=== PATIENT | female | born 1970 | race Caucasian/White ===

== ENCOUNTER → 2018-04-29 11:34 | Outpatient (CLI) | payer BC, SELFPAY ==
--- NOTE | 2018-04-29 11:45 | DI.REPORT_ITS ---
SYMPTOM/DIAGNOSISs: RT ANKLE PAIN M25.571, RT ANKLE INJURY S99.911A, RT HEEL PAIN M79.671 RIGHT ANKLE: Comparison is made with foot dated 14 December 2017 Small heel spurs are again noted. No bony erosions or foreign bodies are seen. An ossicle is again noted at the dorsal aspect of the talus. The ankle mortise and talar dome appear intact. IMPRESSION: Small heel spurs.
== END ==
PROVIDERS: PCP Nurse Practitioner; Visit Provider Nurse Practitioner
DX: M25.571 Pain in right ankle and joints of right foot (principal); M79.671 Pain in right foot; S99.911A Unspecified injury of right ankle, initial encounter; M77.31 Calcaneal spur, right foot
CPT/HCPCS: 73610

== ENCOUNTER 2018-05-12 14:31 | Outpatient (RCR) | payer BC, SELFPAY ==
--- NOTE | 2018-01-24 09:33 | PTIDS_ITS ---
DATE: 01/24/18 REFERRING PROVIDER: Eveline Hill NP DIAGNOSIS: back pain ___x__ Patient did not return for a follow up appointment(s). Patient called to cancel remaining appointment(s). Reason: Return to physician recommended. Patient had achieved an improvement in condition up to their prior level of function. Patient was instructed in a customized home exercise program to continue independently at home. The patient was given the option to call and schedule an appointment any time within a 3-week period if they experience a return of symptoms. Patient did not schedule follow up within this time frame. COMMENTS: Seen for initial evaluation only on 11/22/17. ___x__ Discharge from PT at this time. Medicare: Unable to assign G-Codes due to the lack of a formal follow up visit. Patient did not schedule further visits after their last attended appointment and therefore a final assessment could not be performed.
--- NOTE | 2018-05-12 10:04 | IE_ITS ---
Date: 05/12/18 Referring: Eveline Hill NP M.D. Diagnosis: (R) heel and ankle pain, back spasm. P.T. Diagnosis: Acute on chronic back pain. SUBJECTIVE: History of Present Illness: [place] states that her back and shoulders have been bothering her for about 2 weeks with sharp increased pain beginning yesterday. She has a long hx of mid back pain for which she has sought out extensive PT intervention. She has an extensive HEP and completes a daily walking program for management of her pain. She works in [employer] services at the [employer] and returned to work this week and this required a great deal of lifting and standing. As she set up for the past few days and theses changes have resulted in increased back pain. She does perform some tubing exercise at baseline although states that her return to work she has not been as regular with these. She also states that she has had on going (R) heel pain and she had received a referral to see us for that however in the meantime was seen at the [facility] and dx with Achilles tendinitis. She has been instructed in appropriate footwear and was advised to get a heel lift although she has been unable to find one. She describes pain in the mid shoulders and back when taking deep breathes, standing or sitting for too long and she also reports that her pain in fairly constant and it is difficult to identify any exacerbating or alleviating activity. Pain Ratin/10 Pain Location: Between the shoulder blades extending over the superior shoulders and into the neck. 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 She walks 3 miles per day typically in place of her regular strengthening program with thera tubing for upper and LE. Current Level of Function: Currently walking only 1 mile per day due to restriction from her orthopedist in regards to her foot pain. She has discontinued her tubing exercises over the past couple weeks due to time constraints with return to work. Previous Treatment: Extensive PT intervention including soft tissue work and joint mobilizations to the mid back. She has responded favorably to kinesio taping in the past. Comorbidities: Fibromyalgia, anxiety Medications: Omeprazole. Quality of Life: __X__ Fair Standardized Measures: MOLBPDQ: __23% deficit__ OBJECTIVE: Posture: Pt has rounded shoulder forward head posturing. She has a positive Dowengers hump. With cues, she is able to self correct posture minimally. In seated position demonstrates exaggerated scapular protraction. Gait: Non antalgic and non ataxic. Palpation: Pt has significant soft tissue tightness through the upper traps (B) . She is tender through the thoracic paraspinals (B). Joint mobility shows hypomobility through the upper thoracic spine segments. ROM: Cervical ROM is normal she does have contralateral pain with side bending and rotation. UE motion is full and pain free, trunk motion is full pain free. Strength: UE strength is grossly WNL. Treatment: Todays session consisted of neuromodulation with down regulation techniques with IASTM to the cervical and thoracic paraspinals and (B) upper traps. Pt received grade 4 thoracic spine mobilizations with multiple cavitations achieved through the mid thoracic spine. She received kinesio taping for proprioceptive feedback through the paraspinals followed by 10 reps of scap retraction exercises. We review pt's HEP of shoulder extension with thera band resistance which will resume regularly. She is also provided with a heel lift for alleviation of stress through the Achilles. IE: [id number] Direct treatment time: 60 minutes Total treatment time: 60 minutes ASSESSMENT: Patient is a 47-year-old female, referred for PT services with the diagnosis of (R) ankle pain and back spasm. Patient presents with clinical signs and symptoms consistent with acute on chronic mid back pain with underlying postural deficits. Symptoms are complicated by her underlying fibromyalgia and persistent Achilles tendonitis as demonstrated by the following impairment level findings: 1. Postural deficits, 2. Soft tissue dysfunction, 3. chronic pain with fibromyalgia. Impairments are contributing to the following functional limitations: 1. Decreased tolerance to work duties, 2. Pain with prolonged standing, 3. Pain with prolonged sitting. 4.Difficulty completing her normal exercise routine. Patient is assessed as: ____ Low 32690 __X__ Moderate 82330 ____ High 96007 complexity, based on the following: History: Acute on chronic mid back pain and pt with long hx of postural deficits and associated mid back pain. She is also recently returned to her work which requires sustained positioning. Examination: Functional limitations as above. Presentation: X Evolving due to recent return to work Decision-Making: X Moderate complexity __X__ Patient requires skilled PT intervention to remediate the above functional limitations to return to: __X__ Premorbid level of function __X__ Return to full functional mobility __X__ Return to work demands __X__ Improve QOL Prognosis: __X__ Good STG: __4__ weeks. 1. Reduced frequency and severity of pain by 50%. 2. pt able to tolerate prolonged standing for work duties. LTG: __8__ weeks. 1. Fully (I) self management of symptoms. 2. Pt able to resume her normal exercise program. PLAN: Patient to be seen 1 x per week, for 8 weeks, adjusting frequency of visits per patient symptoms and response to treatment. Treatment to include: X Manual therapy - [id number]: Manual mobilization including deep tissue mobilization and joint mobs through the cervical and thoracic spine. Including use of IASTM and taping techniques. Will instruct pt in postural strengthening program which will progress as she is able to tolerate. We will also address her foot and ankle pain as symptoms persist despite orthopedic intervention. Thank you for this referral. Please do not hesitate to contact me with any questions or concerns regarding this patient's plan of care.
== END 2018-05-13 23:59 | disposition home or self-care (01) ==
LOC: PT 14:31
PROVIDERS: PCP Nurse Practitioner; Referring Provider Nurse Practitioner; Visit Provider Nurse Practitioner
DX: M54.6 Pain in thoracic spine (principal); G89.29 Other chronic pain; R29.3 Abnormal posture; M76.61 Achilles tendinitis, right leg; M79.7 Fibromyalgia
CPT/HCPCS: 97162

== ENCOUNTER 2018-08-05 11:14 | Outpatient (CLI) | payer BC, SELFPAY ==
[2018-08-05 13:08] LABS: HCT 42.9 % (36.0-46.0); HGB 13.9 g/dL (12.0-15.5); Mean Corp. HGB Concentration 32.4 g/dL (32.0-36.0); Mean Corpuscular Hemoglobin 30.8 pg (27.0-33.0); Mean Corpuscular Volume 95.1 fL (80-95); Mean Platelet Volume 11.1 fL (8.0-11.0); Platelet Count 261 x1000/uL (130-400); RBC 4.51 m/cumm (4.00-5.20)
[2018-08-05 13:58] LABS: Anion Gap 10.4 mmol/L (3-11); BUN 19 mg/dL (7-18); CO2 28.6 mmol/L (21.0-32.0); Calcium 9.7 mg/dL (8.5-10.1); Chloride 103 mmol/L (98-107); Glucose 97 mg/dL (70-100); Magnesium 1.7 mg/dL (1.8-2.4); Potassium 3.9 mmol/L (3.5-5.1); Sodium 142 mmol/L (136-145)
== END 2018-08-05 11:34 ==
PROVIDERS: PCP Nurse Practitioner; Visit Provider Student in an Organized Health Care Education/Training Program
DX: K59.00 Constipation, unspecified (principal); R53.83 Other fatigue; D68.51 Activated protein C resistance; R23.3 Spontaneous ecchymoses; E63.9 Nutritional deficiency, unspecified; E86.0 Dehydration; Z86.39 Personal history of other endocrine, nutritional and metabolic disease
CPT/HCPCS: 36415; 80048; 85027; 83735

== ENCOUNTER 2018-08-15 11:43 | Emergency (ER) | payer BC, SELFPAY ==
[2018-08-15] VITALS (13 sets, daily range): BP systolic 117–130; BP diastolic 70–77; PULSE 78–95; RESP 14–20; TEMP 37.2; O2SAT 99–100
--- NOTE | 2018-08-15 11:53 | ED.GENADUL_ITS ---
Discharge Plan Disposition Patient Disposition: HOME Condition: Stable Discharge Details Chief Complaint: Chest Pain Clinical Impression: Chest pain Primary Care Provider: Eveline Hill ED Provider: Jerod Crawford Home Meds and New Rx's Prescriptions: No Action meloxicam 15 mg tablet 15 mg PO DAILY Qty: 30 RF: 3 compression socks, medium [Futuro Restoring Medium] 1 EACH misc 1 ea Miscellaneous DAILY Qty: 2 RF: 0 valacyclovir 1 gram tablet 2,000 mg PO Q12H PRNRF: 0 Discharge Instructions Instructions: Chest Pain (ED) Additional Instructions: Follow up with your primary care provider within a week take 81 mg aspirin daily until you follow up with your primary care provider's office Discuss having stress testing with your primary care provider if you have severe worsening of pain or difficulty breathing return to the emergency department Medical Decision Making 47 yo female with hx of fibromyaglia, ibs, who comes in with complaint of chest pain starting around 4am and radating to the back. Denies fevers, cough or recent travel. States it is worse with deep breaths. Has no leg swelling or calf pain. HAs pain when I push on the chest and upper back so could be musculoskeletal, but will obtain CTA to eval for dissection vs PE (unlikely pe given lack of tachycardia/hypoxia/evidence of dvt on exam). Heart score is 1 based on age, will obtain troponin and monitor pt remains stable, only has pain with palpation now. CTA negative per Dr. Hauser and labs unremarkable. Given length of time with symptoms do not feel second troponin inidicated and given low heart score feel she is safe for outpatient managemenet. Advised f/u with pcp this week and return precautions given Differential Diagnosis nstemi, musculoskeletal pain, dissection, fibromyalgia Imaging Data Radiologic Study: Attestation: I personally reviewed and interpreted this imaging study as follows: Imaging: CT Scan Radiologist's impression: no acute findings Lab Data Lab results reviewed: Yes I reviewed the patient's lab results. ECG Data Attestation: I personally reviewed and interpreted this ECG (s) as follows: Prior ECG tracings: available for review Interpretation: sinus rhythm, rate of 90, pr 116, no acute st t wave changes when compared to old ekg HPI General Mode of arrival: ambulatory . Date/Time Provider Initiated Documentation: 08/15/18 11:45 . Limitations to Documentation: no limitations . Information obtained by: patient . History of Present Illness 47 year old F presents to the emergency department with the chief complaint of chest pain, described as moderate, with intensity rated at 5. Quality is described as aching, and is localized to the chest. Patient reports radiation to back. Patient started experiencing this hour(s) (8) and it has been constant. No relieving factors improve symptom(s), Patient did receive the following treatments prior to arrival, none Related Data Home Medications Medication Instructions Recorded Confirmed compression socks, medium [Futuro #2 u 03/11/16 08/11/18 Restoring] meloxicam 15 mg tablet 15 mg PO DAILY #30 tab 08/11/18 08/15/18 valacyclovir 2,000 mg PO Q12H PRN 08/15/18 08/15/18 Previous Rx's Medication Instructions Recorded meloxicam 15 mg tablet 15 mg PO DAILY #30 tab 08/11/18 Allergies Allergy/AdvReac Type Severity Reaction Status Date / Time Penicillins Allergy Intermediate FACIAL Verified 08/15/18 11:56 SWELLING Sulfa (Sulfonamide Allergy Verified 08/15/18 11:56 Antibiotics) venlafaxine HCl AdvReac Unknown felt Verified 08/15/18 11:56 [From Effexor] weird, eyes becam dilated per pt Review of Systems Review of Systems All systems reviewed & are unremarkable except as noted in HPI and below Constitutional Denies chills, Denies fever(s) and Denies weakness ENT Denies change in voice Gastrointestinal Denies abdominal pain, Denies nausea and Denies vomiting Integumentary/Breasts Denies rash Neurologic Denies weakness PFSH Abdominal pain Fibromyalgia Hx of supraventricular tachycardia Family History Mother No problems noted. Father Essential hypertension Diabetes Brother No problems noted. Abdominal hysterectomy (~2008) Colonoscopy - MAC EGD - MAC Ligation of fallopian tube (~2008) Open Carpal Tunnel release (~2009) TENNIS ELBOW (~2010) Tonsillectomy (~2012) r shoulder surgery (02/17/16) Family History Mother No problems noted. Father Essential hypertension Diabetes Brother No problems noted. Medical History Abdominal pain Fibromyalgia Hx of supraventricular tachycardia Social History Smoking/Tobacco Use Status: Never Surgical History Abdominal hysterectomy (~2008) Colonoscopy - MAC EGD - MAC Ligation of fallopian tube (~2008) Open Carpal Tunnel release (~2009) TENNIS ELBOW (~2010) Tonsillectomy (~2012) r shoulder surgery (02/17/16) Social History Smoking/Tobacco Use Status: Never Exam Const General: no acute distress Orientation: alert HENMT Head: normal to inspection Ears: external ears normal General nose exam: external nose normal Mouth: moist mucous membranes Eyes General: appearance normal, both eyes and all related structures Neck Neck: normal visual inspection Resp Effort & Inspection: normal respiratory effort and able to speak in complete sentences Cardio Rate: regular rate Skin General skin exam: no rashes or lesions noted Neuro General: alert and oriented x3 Extrem General: normal to inspection Psych Mental Status: mental status grossly normal
--- NOTE | 2018-08-15 11:56 | DI.CT_ITS ---
SYMPTOM/DIAGNOSIS: CHEST PAIN RADIATING TO BACK, ? DISSECTION CTA THORAX: CT angiography was performed with multi slice acquisition and multi planar and 3D reconstruction. CT angiography of the chest was performed according to protocol. The thoracic aorta is of normal caliber. No evidence of aneurysm or dissection is present. Heart size is within normal limits. No significant pericardial effusion is seen. No significant thoracic adenopathy is present. No pleural effusion or pneumothorax is identified. The central pulmonary arteries are grossly unremarkable. Pulmonary arteries are not opacified well enough for evaluation to rule out pulmonary embolus. The lungs are clear. The tracheobronchial tree is unremarkable. The upper abdominal images are grossly unremarkable. IMPRESSION: No acute abnormality. No evidence of thoracic aortic aneurysm or dissection. The findings were discussed with the ER on the date of the examination.
[2018-08-15 12:02] LABS: Abs Immature Grans 0.02 k/cumm (0.0-0.09); Absolute Basophil Count 0.04 k/cumm (0.0-0.2); Absolute Eosinophil Count 0.18 k/cumm (0.0-0.7); Absolute Lymphocyte Count 2.29 k/cumm (1.2-3.4); Absolute Monocyte Count 0.61 k/cumm (0.11-0.7); Absolute Neutrophil Count 4.38 k/cumm (1.2-6.7); Basophils % 0.5; Eosinophils % 2.4; HCT 41.4 % (36.0-46.0); HGB 13.8 g/dL (12.0-15.5); Immature Grans % 0.3; Lymphocytes % 30.5; Mean Corp. HGB Concentration 33.3 g/dL (32.0-36.0); Mean Corpuscular Hemoglobin 31.3 pg (27.0-33.0); Mean Corpuscular Volume 93.9 fL (80-95); Mean Platelet Volume 10.7 fL (8.0-11.0); Monocytes % 8.1; Neutrophils % 58.2; Platelet Count 251 x1000/uL (130-400); RBC 4.41 m/cumm (4.00-5.20); RBC Distribution Width 13.6 % (11.7-14.6); White Blood Cell Count 7.52 k/cumm (4.4-10.8)
[2018-08-15] MEDS: Aspirin 81 MG CHEW 324 MG CH (12:03)
[2018-08-15 12:13] LABS: PTT Activated 22.7 sec (21.0-31.4); Prothrombin Time 9.9 sec (9.3-10.8)
[2018-08-15 12:23] LABS: ALT 24 U/L (12-78); AST 17 U/L (15-37); Albumin 4.3 g/dL (3.4-5.0); Alkaline Phosphatase 72 U/L (46-116); Anion Gap 10.7 mmol/L (3-11); BUN 16 mg/dL (7-18); Bilirubin, Total 0.5 mg/dL (0.2-1.0); CO2 27.3 mmol/L (21.0-32.0); CREATININE 0.72 mg/dL (0.55-1.02); Calcium 9.3 mg/dL (8.5-10.1); Chloride 102 mmol/L (98-107); Glucose 101 mg/dL (70-100); Magnesium 1.9 mg/dL (1.8-2.4); Potassium 3.4 mmol/L (3.5-5.1); Sodium 140 mmol/L (136-145); Total Protein 8.2 g/dL (6.4-8.2); Troponin I < 0.02 ng/mL (0.00-0.06)
[2018-08-15] MEDS: Omnipaque 350 MG/ML 100 ML BTL IV (12:35)
== END 2018-08-15 13:12 | disposition home or self-care (01) ==
LOC: ER 13:12
PROVIDERS: Emergency Provider Emergency Medicine; PCP Nurse Practitioner
DX: R07.9 Chest pain, unspecified (principal)
CPT/HCPCS: 36415; 71275; 80053; 93005; 99285; 83735; 84484; 85025; 85610; 85730; 93010; J3490

== ENCOUNTER 2018-08-20 10:55 | Emergency (ER) | payer BC, SELFPAY ==
[2018-08-20 11:01] VITALS: BP 148/83; PULSE 98; RESP 16; TEMP 36.6; O2SAT 100
[2018-08-20 11:07] VITALS: RESP 16
--- NOTE | 2018-08-20 11:20 | DI.RAD_ITS ---
SYMPTOM/DIAGNOSIS: COUGH, FEVER, RECENT CT PA AND LATERAL CHEST: Cardiac and mediastinal contours have a normal appearance. The lungs are well inflated and clear. No infiltrate or effusion seen. There are no visible emphysematous or interstitial changes. IMPRESSION: Negative chest x-ray
--- NOTE | 2018-08-20 11:22 | ED.GENADUL_ITS ---
Discharge Plan Disposition Patient Disposition: HOME Discharge Details Chief Complaint: GenMedical Clinical Impression: Abnormal CT of the abdomen, Back pain, Fever Primary Care Provider: Eveline Hill ED Provider: Kev Garzon Home Meds and New Rx's Prescriptions: No Action No Known Home Meds RF: 0 Discharge Instructions Additional Instructions: Please drink plenty of fluid and allow for plenty of rest. Take tylenol for fever or pain - dose according to label. CT of your abdomen and pelvis today was interpreted preliminarily as follows: Inflammatory changes and nodules in the small bowel mesentery are nonspecific but may represent inflammation or infection. Differential includes early lymphoma and leukemia. 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 Call on Wednesday. Return to the emergency department for any worsening or new concerning symptoms. Stand Alone Forms: Work Release Referrals: Eveline Hill NP [Primary Care Provider] - Medical Decision Making 12:30 --47-year-old female with history of fibromyalgia, IBS, here with 3 days of intermittent fever and mid back pain worse on the left side, CVA tenderness on the left, currently afebrile and hemodynamically stable. Patient was recently seen here for chest pain and shortness of breath and had a negative diagnostic workup including CTA of the chest, ECG and labs. Consideration was made for atypical presentation for ACS. Repeat EKG reviewed and interpreted by me today: Normal sinus rhythm 96 bpm, normal axis, no STEMI, no changes from prior ECG. Troponin repeated today and remains negative. Urinalysis reviewed and patient has 10-20 red blood cells, no white blood cells , concern for potential renal stone. Plan to CT abdomen pelvis. 13:25 -- A CT head order that was intended for another patient was placed erroneously on this patient. Unfortunately, the study was performed prior to cancellation of order. The patient was notified of this mistake. She should not be billed for this study. 14:08 -- CT interpreted by radiology: IMPRESSION: Inflammatory changes and nodules in the small bowel mesentery are nonspecific but may represent inflammation or infection. Differential includes early lymphoma and leukemia. Dictated and Authenticated by: Angie Blackburn MD. Patient does not have lymphocytosis. She has mild leukopenia with decreased lymphocytes. She is not pancytopenic. There are no blasts noted. Results reviewed with the patient. Patient does note that she bruises easily. Patient is quite anxious about results. I attempted to provide reassurance. Plan is to have patient follow-up with PCP for continued outpatient workup. Will ask care management to assist in arranging timely follow-up. Patient understands importance of timely follow-up. Disposition decision was made weighing the risks and benefits of hospitalization versus outpatient treatment, the risk for further decompensation , and the patient's wishes. The patient was stable and requested discharge. Prior to discharge, my usual and customary return precautions were reviewed with the patient- this included follow-up instructions and reason to return to the emergency department if condition worsens, does not improve as expected, or other new concerns arise. Imaging Data Radiologic Study: Imaging: X-Ray (cxr) Radiologist's impression: FINDINGS: Lungs: Unremarkable. No consolidation. Pleural space: Unremarkable. No pleural effusion. No pneumothorax. Heart/Mediastinum: Unremarkable. No cardiomegaly. Bones/joints: Metallic density in the proximal right humerus. Well-corticated cystic structure in the proximal right humerus IMPRESSION: No acute process Dictated and Authenticated by: Angie Blackburn MD. HPI General Mode of arrival: ambulatory . Date/Time Provider Initiated Documentation: 08/20/18 11:05 . Limitations to Documentation: no limitations . Information obtained by: patient . HPI Narrative: 47-year-old female with history of fibromyalgia and irritable bowel syndrome, here with chief complaint of back pain. Patient notes for the past 3 days she has had mid to lower midline and left of midline back pain. Pain is moderate. Feels sore. She has associated fever intermittently over the past 3 days. Denies urinary symptoms. Of note she was here on 08/15/2018 for chest pain and shortness of breath and had a negative diagnostic workup including negative CTA of the chest as well as negative labs. She does note that over the past 2-3 days she has had intermittent cough as well as congestion. She did receive a flu shot this year. Related Data Home Medications Medication Instructions Recorded Confirmed Unknown [No Known Home Meds] 08/20/18 08/20/18 Allergies Allergy/AdvReac Type Severity Reaction Status Date / Time Penicillins Allergy Intermediate FACIAL Verified 08/20/18 11:06 SWELLING Sulfa (Sulfonamide Allergy Verified 08/20/18 11:06 Antibiotics) venlafaxine HCl AdvReac Unknown felt Verified 12/08/18 11:06 [From Effexor] weird, eyes becam dilated per pt General Stated Complaint: GenMedical CHRISTIANA: 3 Review of Systems Review of Systems All systems reviewed & are unremarkable except as noted in HPI and below Constitutional Reports fever(s) ENT Reports nasal congestion Cardiovascular Denies chest pain and Denies dyspnea Respiratory Reports cough and Denies dyspnea Genitourinary Denies hematuria and Denies dysuria PFSH Abdominal pain Fibromyalgia Hx of supraventricular tachycardia Family History Mother No problems noted. Father Essential hypertension Diabetes Brother No problems noted. Abdominal hysterectomy (~2008) Colonoscopy - MAC EGD - MAC Ligation of fallopian tube (~2008) Open Carpal Tunnel release (~2009) TENNIS ELBOW (~2010) Tonsillectomy (~2012) r shoulder surgery (02/17/16) Family History Mother No problems noted. Father Essential hypertension Diabetes Brother No problems noted. Medical History Abdominal pain Fibromyalgia Hx of supraventricular tachycardia Social History Smoking/Tobacco Use Status: Never Surgical History Abdominal hysterectomy (~2008) Colonoscopy - MAC EGD - MAC Ligation of fallopian tube (~2008) Open Carpal Tunnel release (~2009) TENNIS ELBOW (~2010) Tonsillectomy (~2012) r shoulder surgery (02/17/16) Social History Smoking/Tobacco Use Status: Never Exam Const General: cooperative and no acute distress HENMT Head: normocephalic and atraumatic Mouth: moist mucous membranes Eyes Conjunctivae: normal conjunctivae Sclera: normal sclerae Neck Neck: trachea midline and supple Resp Auscultation: clear to auscultation bilaterally, no rales, no rhonchi and no wheezes Cardio Jugular venous pressure: no JVD Rate: regular rate and not tachycardic Rhythm: regular rhythm GI Palpation: soft, not firm, no guarding, no masses, not rigid and nontender Back/Spine/Pelvis Back: CVA tenderness (left) and No erythema Thoracic/Lumbar Spine: thoracic spinal tenderness (lower thoracic) Skin General skin exam: no rashes or lesions noted Neuro General: alert, awake, oriented x3 and tone normal Extrem General: no edema Psych Appearance: grossly normal Mental Status: mental status grossly normal Speech and Movement: speech and movement normal Course Vital Signs Temperature 36.6 C 08/20/18 11:01 Pulse 98 H 08/20/18 11:01 Respiratory Rate 16 08/20/18 11:01 Blood Pressure 148/83 H 08/20/18 11:01 Pulse Oximetry 100 08/20/18 11:01 Temperature 36.6 C 08/20/18 11:01 Temperature Source Skin 08/20/18 11:01 Pulse 98 H 08/20/18 11:01 Respiratory Rate 16 08/20/18 11:07 Respiratory Effort Non-Labored 08/20/18 11:07 Respiratory Depth Normal 08/20/18 11:07 Respiratory Pattern Normal 08/20/18 11:07 Blood Pressure 148/83 H 08/20/18 11:01 Pulse Oximetry 100 08/20/18 11:01 Pain Level 7 08/20/18 11:01
[2018-08-20 11:29] LABS: Bilirubin Negative (Negative); Blood Small (Negative); Clarity Clear; Glucose Negative (Negative); Ketones 15 mg/dL (Negative); Leukocyte Esterase Negative (Negative); Nitrite Negative (Negative); Urobilinogen 0.2 EU/dL (Up TO 0.2); pH 6.5 (5-8)
[2018-08-20 11:37] LABS: Bacteria Rare HPF (Negative); C & S Indicated? No; Casts Negative LPF (Negative); Crystals Negative HPF (Negative); Epithelial Cells Rare HPF (Negative); Mucus Negative (Negative); WBC 0-2 HPF (0-5)
[2018-08-20 11:52] LABS: Abs Immature Grans 0.01 k/cumm (0.0-0.09); Absolute Basophil Count 0.04 k/cumm (0.0-0.2); Absolute Lymphocyte Count 0.51 k/cumm (1.2-3.4); Absolute Monocyte Count 0.29 k/cumm (0.11-0.7); Absolute Neutrophil Count 2.99 k/cumm (1.2-6.7); HCT 39.9 % (36.0-46.0); HGB 13.3 g/dL (12.0-15.5); Immature Grans % 0.3; Lymphocytes % 13.3; Mean Corp. HGB Concentration 33.3 g/dL (32.0-36.0); Mean Corpuscular Hemoglobin 30.9 pg (27.0-33.0); Mean Corpuscular Volume 92.8 fL (80-95); Monocytes % 7.6; Neutrophils % 77.8; Platelet Count 146 x1000/uL (130-400); RBC Distribution Width 13.6 % (11.7-14.6); White Blood Cell Count 3.84 k/cumm (4.4-10.8)
[2018-08-20 12:06] LABS: ALT 31 U/L (12-78); AST 30 U/L (15-37); Albumin 3.6 g/dL (3.4-5.0); Alkaline Phosphatase 75 U/L (46-116); Anion Gap 13.2 mmol/L (3-11); BUN 10 mg/dL (7-18); Bilirubin, Total 0.6 mg/dL (0.2-1.0); CO2 25.8 mmol/L (21.0-32.0); CREATININE 0.74 mg/dL (0.55-1.02); Calcium 8.6 mg/dL (8.5-10.1); Chloride 100 mmol/L (98-107); Glucose 96 mg/dL (70-100); Potassium 3.4 mmol/L (3.5-5.1); Sodium 139 mmol/L (136-145); Total Protein 7.4 g/dL (6.4-8.2); Troponin I 0.02 ng/mL (0.00-0.06)
--- NOTE | 2018-08-20 12:34 | DI.CT_ITS ---
SYMPTOM/DIAGNOSIS: LEFT BACK PAIN, HEMATURIA RENAL COLIC CT: Comparison is made with 09 Sep 2015. There is no evidence of urinary tract calculi or hydronephrosis. The lower portions of the liver are unremarkable. The gallbladder appears normal without contrast. The spleen is now noted to be enlarged. There are multiple enlarged lymph nodes in the mesentery mainly in the left upper quadrant. There is some haziness in the mesentery and around some loops of small bowel. There is no evidence of bowel obstruction. There is mild nonspecific dilatation of loops of small bowel in the left upper quadrant. The findings could represent infectious or inflammatory enteritis with reactive lymph node enlargement. Leukemia or lymphoma could also be considered. There is a trace amount of fluid in the lower pelvis. The patient is status post hysterectomy. There are multiple surgical clips in the anterior abdominal wall. The appendix appears normal. The large bowel is grossly normal. No lytic or blastic bony lesions are seen. IMPRESSION: Mildly dilated small bowel in the left upper quadrant. Enlarged left upper quadrant mesenteric lymph nodes and mesenteric haziness could be related to infectious or inflammatory causes. However, early lymphoma or leukemia could also be considered.
--- NOTE | 2018-08-20 12:42 | DI.VRAD_ITS ---
EXAM: XR Chest, 2 Views EXAM DATE/TIME: 08/20/2018 11:22 AM CLINICAL HISTORY: 47 years old, female; Signs and symptoms; Other: Cough, fever, recent CT TECHNIQUE: XR of the chest, 2 views. COMPARISON: CR ABD FLAT UPRIGHT PA CHEST 11/02/2014 12:24 PM FINDINGS: Lungs: Unremarkable. No consolidation. Pleural space: Unremarkable. No pleural effusion. No pneumothorax. Heart/Mediastinum: Unremarkable. No cardiomegaly. Bones/joints: Metallic density in the proximal right humerus. Well-corticated cystic structure in the proximal right humerus IMPRESSION: No acute process Dictated and Authenticated by: Angie Blackburn MD. Ordering:RONN JHAVERI MD
--- NOTE | 2018-08-20 13:01 | DI.CT_ITS ---
SYMPTOM/DIAGNOSIS: ALTERED MENTATION, GENERAL CONFUSION, NO FOCAL DEF NONCONTRAST HEAD CT: This exam was performed in error. There are no prior comparison exams. No intracranial hemorrhage, mass or infarct is seen. The ventricles appear symmetric and are normal in size. There is no evidence of skull fracture. The orbits and visualized portions of the sinuses as well as mastoid air cells are unremarkable. IMPRESSION: Negative head CT.
[2018-08-20] MEDS: Acetaminophen 325 MG TAB 650 MG PO (13:04)
--- NOTE | 2018-08-20 13:41 | DI.VRAD_ITS ---
EXAM: CT Abdomen and Pelvis Without Contrast EXAM DATE/TIME: 08/20/2018 12:35 PM CLINICAL HISTORY: 47 years old, female; Pain; Abdominal pain; Localized; Left; Prior surgery; Surgery date: 6+ months; Surgery type: Patient sts has had a tummy tuck years ago. TECHNIQUE: Axial computed tomography images of the abdomen and pelvis without contrast. All CT scans at this facility use at least one of these dose optimization techniques: automated exposure control; mA and/or kV adjustment per patient size (includes targeted exams where dose is matched to clinical indication); or iterative reconstruction. Coronal and sagittal reformatted images were created and reviewed. COMPARISON: CT ABD PELVIS WITH CONTRAST 09/09/2015 10:33 PM FINDINGS: Lower thorax: No acute findings. ABDOMEN: Liver: Normal. No mass. Gallbladder and bile ducts: Normal. No calcified stones. No ductal dilation. Pancreas: Normal. No ductal dilation. Spleen: Normal. No splenomegaly. Adrenals: Normal. No mass. Kidneys and ureters: No renal calculus. No ureteral calculus. Stomach and bowel: Inflammatory changes and nodules in the small bowel mesentery are nonspecific but may represent inflammation or infection. Differential includes early lymphoma and leukemia. No obstruction Appendix: Normal appendix PELVIS: Bladder: Unremarkable as visualized. Reproductive: Unremarkable as visualized. ABDOMEN and PELVIS: Intraperitoneal space: Mild amount of free fluid in the pelvis Bones/joints: No acute fracture. No dislocation. Soft tissues: Surgical clips anteriorly in the midline consistent with prior surgery Vasculature: Normal. No abdominal aortic aneurysm. Lymph nodes: Prominent lymph nodes in the small bowel mesentery IMPRESSION: Inflammatory changes and nodules in the small bowel mesentery are nonspecific but may represent inflammation or infection. Differential includes early lymphoma and leukemia. Dictated and Authenticated by: Angie Blackburn MD. Ordering:RONN JHAVERI MD
[2018-08-20 14:16] VITALS: BP 142/75; PULSE 112; RESP 18; TEMP 38; O2SAT 97
[2018-08-20 15:18] VITALS: PULSE 99; RESP 16; O2SAT 100
== END 2018-08-20 15:18 | disposition home or self-care (01) ==
PROVIDERS: Emergency Provider Student in an Organized Health Care Education/Training Program; PCP Nurse Practitioner
DX: R93.3 Abnormal findings on diagnostic imaging of other parts of digestive tract (principal); M54.5 Low back pain; R50.9 Fever, unspecified; K58.9 Irritable bowel syndrome, unspecified
CPT/HCPCS: 36415; 80053; 87449; 93005; 99285; 70450; 71046; 74176; 81003; 81015; 83735; 84443; 84484; 85025; 93010

== ENCOUNTER 2018-08-30 08:57 | Outpatient (REF) | payer BC, SELFPAY ==
[2018-08-31 11:21] LABS: Campylobacter PCR SEE COMMENTS; Salmonella PCR SEE COMMENTS; Shiga Toxin PCR SEE COMMENTS; Shigella/Enteroinvasive Ecoli SEE COMMENTS
[2018-09-01 17:11] LABS: Calprotectin 19.2 mcg/g
== END 2018-08-30 09:17 ==
LOC: LBN 08:57
PROVIDERS: PCP Nurse Practitioner; Visit Provider Nurse Practitioner Family
DX: R10.10 Upper abdominal pain, unspecified (principal)
CPT/HCPCS: 87329; 87505; 83993; 87324

== ENCOUNTER 2018-12-29 08:07 | Day surgery (SDC) | payer BC, SELFPAY ==
[2018-12-29 08:36] VITALS: BP 115/73; PULSE 75; RESP 16; TEMP 35.7; O2SAT 100
[2018-12-29] MEDS: Ciprofloxacin 250 MG TAB PO (08:44)
[2018-12-29] MEDS: Lactated Ringers 1,000 ML 80 ML IV (08:44)
[2018-12-29] MEDS: Lidocaine 2% Jelly 11 ML SYR (11:08)
[2018-12-29] MEDS: Omnipaque 300 MG/ML 50 ML BTL (11:10)
--- NOTE | 2018-12-29 11:18 | W.PM.DSUDISC ---
Discharge Plan Disposition Patient Disposition: HOME Condition: Stable Discharge Details Reason For Visit: surgery Attending Provider: Real Cazares Primary Care Provider: Macy Morillo Home Meds and New Rx's Prescriptions: No Action ibuprofen 200 mg capsule 200 mg PO Q8H PRNRF: 0 acetaminophen [Tylenol Extra Strength] 500 mg tablet 1,000 mg PO QID PRNRF: 0 omeprazole 20 mg capsule,delayed release(DR/EC) 20 mg PO DAILY Qty: 90 RF: 3 citalopram 20 mg tablet 20 mg PO DAILY Qty: 30 RF: 12 acyclovir 400 mg tablet 400 mg PO TID PRNRF: 0 meloxicam 15 mg Tablet 15 mg PO DAILY RF: 0 Zyrtec 10 mg Capsule 10 mg PO PRN PRNRF: 0 Discharge Instructions Additional Instructions: F/U with me yearly for urinalysis (sooner if urine symptoms are bothersome) Ask pt to contact her PCP to discuss next step in her workup Activity:: Activity as Tolerated Diet:: As Tolerated Discharge Orders Discharge Orders: Discharge Order (Routine); Ordered 12/29/18 Ordered By: Real Cazares DS: Diagnosis Discharge Diagnosis (1) Microscopic hematuria: Status: Resolved
--- NOTE | 2018-12-29 11:27 | DI.RAD_ITS ---
SYMPTOMS/DIAGNOSIS: HEMATURIA C-ARM FLUOROSCOPY: Fluoroscopy Time: 19.8s C-arm fluoroscopy was utilized by Dr. Cazares. Please see Dr. Cazares's procedure note. Hardcopies show bilateral retrograde ureterogram.
[2018-12-29] MEDS: Phenazopyridine 200 MG TAB PO (11:28)
[2018-12-29 11:50] VITALS: BP 111/75; PULSE 70; RESP 16; TEMP 36.2; O2SAT 100
--- NOTE | 2018-12-30 07:36 | ROE_ITS ---
REPORT OF OPERATIVE PROCEDURE DATE OF PROCEDURE December 29, 2018 PREOPERATIVE DIAGNOSIS Microscopic hematuria. POSTOPERATIVE DIAGNOSIS Microscopic hematuria. PROCEDURE Cystoscopy with bilateral retrograde pyelogram. SURGEON Real Cazares M.D. ANESTHESIA MAC with local. COMPLICATIONS None. HISTORY This is a 48-year-old woman who was recently seen by her primary care provider. She was having sympto ms of abdominal and back discomfort. There was no obvious etiology for her discomfort, but her hematu nkechi at that time showed 10 to 20 red cells per high-powered field. She was referred for her hematuri a workup. In addition to local providers, the patient sees some of the specialist down at [facility]. She has had a CT of the abdomen and pelvis that I was able to review. No renal stone s or renal masses were seen. I did not see the ureters well on that particular study, so she comes in now for cystoscopy with retrograde pyelogram to complete her hematuria workup. OPERATIVE REPORT The patient was brought to the Operating Room on 12/29/18. She was given Monitored Anesthesia Care and placed in the dorsal lithotomy position. Her genitalia was prepped and draped. 2% Xylocaine jelly was instilled into the urethra to act as a local anesthetic. A #22-[place] rigid cystoscope was passed through the urethra into the bladder. The urethra and bladde r were inspected using both the 30 and a 70-degree lens. Both ureteral orifices were identified. Each orifice was cannulated with a #6-[place] access catheter. Retrograde films were obtained by injecting Omnipaque through the access catheter under fluoroscopic guidance. No filling defects were seen in the course of the ureter or in the collecting systems. Bot h ureters drained promptly on a five-minute drainage film. The remainder of the bladder appeared smooth walled with no papillary or nodular lesions. A few infl ammatory type polyps were seen at the bladder neck, but overall no significant uropathology was ident ified. The bladder was emptied and the cystoscope was withdrawn. Based on today's examination, she has no significant pathology causing microscopic hematuria, and no urologic findings that would account for her pain. Our recommendation includes a yearly urinalysis and a repeat hematuria workup if blood continues to b e seen on yearly urinalyses in the next three to five years. CC: Macy Morillo M.D.
== END 2018-12-29 12:06 | disposition home or self-care (01) ==
PROVIDERS: PCP Family Medicine; Visit Provider Urology
PROC: (CPT 74450; principal; 2018-12-29 10:00)
DX: R31.29 Other microscopic hematuria (principal); D41.4 Neoplasm of uncertain behavior of bladder
CPT/HCPCS: 52005; 74420; J1885; Q9967

== ENCOUNTER 2019-10-03 10:28 | Outpatient (CLI) | payer BC, SELFPAY ==
--- NOTE | 2019-10-02 15:00 | NS.NUTBLAN_ITS ---
Description: [place] came to outpatient clinic for help with attaining her goal weight of 165 lbs. She describes that in 1999 she weighed 350 lbs, then over a couple of years she attained weight of 165 lbs. In 2008, she regained 40 lbs and has been struggling to lose weight since. She reports that she was able to lose weight by exercising daily and eating only once daily. She has recently started to eat more during day but primarily follows the keto diet and walking 2 miles daily. 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 reports daily BM and appears overall well noursihed. weight today: 176 lbs, has lost 4 lbs in last week. BMI 31. Assessment: [place] has lost a tremendous amount of weight in the last 20 years and been able to keep most of it off. Her regain of weight most likely was due to a depressed metabolism due to inadequate caloric intake as aging process continued. I encouraged her to continue walking 2 miles daily- weekly goal of 12 miles but to increase her caloric, carbohydrate intake to meet nutrient needs and to maintain her weight between 165-175 lbs. I encouraged her to eat 3-4 times daily and also continue to take MVI, calcium and vitamin D daily. Plan: follow up with provider for yearly physical. Continue to walk 2 miles daily. Use Yum[employer]ots to monitor intake and weigh self weekly. Follow up in 4 weeks.
== END 2019-10-03 10:48 ==
PROVIDERS: PCP Family Medicine; Visit Provider Nurse Practitioner Family
DX: R63.5 Abnormal weight gain (principal); Z71.3 Dietary counseling and surveillance
CPT/HCPCS: 97802

== ENCOUNTER 2019-11-06 02:32 | Outpatient (CLI) | payer BC, SELFPAY ==
--- NOTE | 2019-11-07 13:00 | NS.NUTBLAN_ITS ---
Description: [place] returns for second visit for Medical Nutrition Therapy for obesity. She reports that she weighs today 170 lbs, which is 5 lbs from her goal. She has lost 6 lbs in last 5 weeks. Her highest weight in 1999 was 350 lbs and she was able to lose over 200 lbs with diet and exercise. She continues to follow a keto diet but has increased her caloric and carb intake as recommended in previous session. She was surprised to be able to lose weight despite eating more. She has been unable to exercise due to injury to foot, awaiting MRI for diagnosis/treatment. Her food choices continue to be vey limited, mostly consisting of eggs, sausage, cheese, tuna, celery, beans, chicken, cauliflower and providing 800-1000 kcal, 20-30 g carb, 70-80 g protein daily. Intervention: Educated and reinforced to [place] the role of caloric intake and basal metabolic rate, encouraged her to get her caloric intake closer to 1000- 1200 kcal daily. . Also encouraged her to try to include more variety into diet and to continue to increase her carbohydrate intake to 80-100 grams daily. [place] is very fearful of changing her diet. Plan: continue meal plan, add more fruits to daily meal plan for increase in calorie, carbohydrates and fiber Enjoy having cake at granddaughters Bday alliance party- include more variety into meal plan, allow cake at birthday parties follow up with re: foot pain, consider pool exercise if unable to walk for exercise. follow up scheduled for 12/25/19 45 min face to face
== END 2019-11-06 02:52 ==
PROVIDERS: PCP Family Medicine; Visit Provider Nurse Practitioner Family
DX: E66.8 Other obesity (principal); Z71.3 Dietary counseling and surveillance
CPT/HCPCS: 97802

== ENCOUNTER 2019-11-14 16:52 | Outpatient (REF) | payer BC, SELFPAY ==
[2019-11-14 21:26] LABS: Mean Corp. HGB Concentration 32.5 g/dL (32.0-36.0); Mean Corpuscular Hemoglobin 30.7 pg (27.0-33.0); Mean Corpuscular Volume 94.6 fL (80-95); Mean Platelet Volume 11.6 fL (8.0-11.0); Platelet Count 260 x1000/uL (130-400); RBC 4.23 m/cumm (4.00-5.20); RBC Distribution Width 13.5 % (11.7-14.6); White Blood Cell Count 7.92 k/cumm (4.4-10.8)
[2019-11-14 21:55] LABS: BUN 16 mg/dL (7-18); Chloride 105 mmol/L (98-107); Glucose 93 mg/dL (74-106); Potassium 3.5 mmol/L (3.5-5.1); Sodium 142 mmol/L (136-145)
== END 2019-11-14 17:12 ==
LOC: NCHCN 16:52
PROVIDERS: PCP Family Medicine; Visit Provider Nurse Practitioner Family
DX: Z71.3 Dietary counseling and surveillance (principal); D50.9 Iron deficiency anemia, unspecified; Z13.228 Encounter for screening for other metabolic disorders
CPT/HCPCS: 80048; 85027

== ENCOUNTER 2019-11-21 11:08 | Outpatient (CLI) | payer BC, SELFPAY ==
--- NOTE | 2019-11-21 | DI.RAD_ITS ---
EXAM: XR CHEST 2V PA LATERAL CLINICAL HISTORY: HEIDI, J06.9 TECHNIQUE: 2D digital imaging was performed. COMPARISON: No exams were available for comparison FINDINGS: MEDIASTINUM: Normal. HEART: Normal. PULMONARY VASCULATURE: Normal. LUNGS: Clear. PLEURAL SPACE: No pleural effusion or pneumothorax. BONE:Normal. OTHER FINDINGS:Normal. IMPRESSION: No acute pulmonary findings. DATA REPOSITORY: RADIATION DOSE DELIVERED:
== END 2019-11-21 11:28 ==
PROVIDERS: PCP Family Medicine; Visit Provider Nurse Practitioner Family
DX: J06.9 Acute upper respiratory infection, unspecified (principal)
CPT/HCPCS: 71046

== ENCOUNTER 2020-03-08 07:31 | Outpatient (CLI) | payer BC, SELFPAY ==
[2020-03-11 20:36] LABS: SARS-CoV-2 RNA Undetected (Undetected); SARS-CoV-2 Specimen Source Nasopharynx
== END 2020-03-08 07:51 ==
PROVIDERS: PCP Family Medicine; Visit Provider Family Medicine
DX: Z11.59 Encounter for screening for other viral diseases (principal)
CPT/HCPCS: U0003

== ENCOUNTER 2020-09-24 01:20 | Outpatient (CLI) | payer BC, SELFPAY ==
--- NOTE | 2020-09-24 | DI.MAMMO_ITS ---
EXAM: MAMMO SCREENING CLINICAL HISTORY: SCREENING,Z12.31. TECHNIQUE: Bilateral full field digital CC and MLO mammographic images were obtained with 3D tomosyn thesis and utilizing computer aided detection (CAD). COMPARISON: Prior mammograms dating back to 2010, the most recent being November 2017. FINDINGS: Left breast there are new nodular density noted slightly medial of center 8.5 centimetres in from the nipple. Measures 4 x 3 millimeters. In the left breast there are my small benign-appearing microca lcification groups located laterally. These are punctate with benign appearance at this time. In the right breast there are benign-appearing microcalcifications evident. Nodular density posterio rly up again suggest wall is unchanged probably benign lymph node. There is no significant architec tural distortion nor skin thickening-retraction. IMPRESSION: No radiographic evidence of malignancy in the right breast. New nodular density in the left breast as described above. Spot compression view and ultrasound kristal mmended. BI-RADS Category 0 - Assessment Incomplete: Need additional imaging evaluation Breast Density - Category B - Scattered areas of fibroglandular density Breast density Category C or D implies that the patient has dense breast tissue. Dense breast tissue can make it harder to find cancer on a mammogram. Dense breast tissue is also associated with an incr eased risk of breast cancer. This information about the result of the mammogram report was provided to the patient to raise their awareness. Use this report when you speak with the patient about their risks for breast cancer, which includes their family history. At that time, you may recommend additional screening tests (Ultrasoun d or MRI) as these tests may add significant information. A negative radiographic report should not delay biopsy if a dominant or clinically suspicious mass is present. Up to ten percent of cancers are not identified on mammography. A negative report may reinforce clinical impression. Adenosis and dense breasts may obscure an underlying neoplasm. False positive reports average 6 to 10%. Patient will receive a letter notifying them of these results.
== END 2020-09-24 01:40 ==
PROVIDERS: PCP Family Medicine; Visit Provider Family Medicine
DX: Z12.31 Encounter for screening mammogram for malignant neoplasm of breast (principal); R92.8 Other abnormal and inconclusive findings on diagnostic imaging of breast
CPT/HCPCS: 77063; 77067

== ENCOUNTER 2020-09-26 18:29 | Outpatient (REF) | payer BC, SELFPAY ==
[2020-09-28 16:40] LABS: COVID-19 RT-PCR Result NEGATIVE (Negative)
== END 2020-09-26 18:49 ==
LOC: NCHCN 18:29
PROVIDERS: PCP Family Medicine; Visit Provider Nurse Practitioner Family
DX: Z11.52 Encounter for screening for COVID-19 (principal)
CPT/HCPCS: U0003

== ENCOUNTER 2021-02-25 11:51 | Outpatient (REF) | payer BC, SELFPAY ==
--- NOTE | 2021-02-25 14:00 | SKI_PTH ---
PATIENT: China Hall LOC: [facility]#:[id number] AGE/SX: 50/F ROOM: RE02/25/[address]: Angel Braswell : 1970 BED: DIS: 02/25/2021 SPEC #: [id number] RECD: 02/26/21 12:48 STATUS: FELIX REQ #: [id number] LANCE: 02/25/21 14:[address]: Angel Braswell DEPT: Surgical Specimen RECD BY: Liz Contreras ENTERED: 02/26/21 12:49 SP TYPE: OPHELIA HO DR: Macy Morillo Tissues: 1 - SKIN BIOPSY(SHAVE/PUNCH) Procedures: SKIN LEVEL 4 Comments: [id number]
== END 2021-02-25 11:52 | disposition home or self-care (01) ==
LOC: NCHCN 11:51
PROVIDERS: PCP Family Medicine; Visit Provider Family Medicine
DX: L30.8 Other specified dermatitis (principal)
CPT/HCPCS: 88305

== ENCOUNTER 2021-10-31 15:33 | Outpatient (REF) | payer BC, SELFPAY ==
[2021-10-31 20:54] LABS: HCT 39.9 % (36.0-46.0); HGB 12.5 g/dL (11.2-15.7); MCH 30.4 pg (27.0-33.0); MCHC 31.3 % (32.0-36.0); MCV 97.1 fL (80-95); MPV 11.2 fL (8.0-11.0); Platelet Count 244 10^3/uL (130-400); RBC 4.11 10^6/uL (3.93-5.22); RDW 13.1 % (11.7-14.6); RDW-SD 47.4 fL; WBC 8.51 10^3/uL (4.4-10.8)
[2021-10-31 21:06] LABS: Iron 63 ug/dL (50-170); Total Iron Binding Capacity 312 ug/dL (250-450); Transferrin Sat 20 % (15-50)
[2021-10-31 21:16] LABS: Anion Gap 9.3 mmol/L (3-11); BUN 21 mg/dL (7-18); CO2 26.7 mmol/L (21.0-32.0); CREATININE 0.7 mg/dL (0.55-1.02); Calcium 9.1 mg/dL (8.5-10.1); Chloride 103 mmol/L (98-107); Glucose 81 mg/dL (74-106); Potassium 3.8 mmol/L (3.5-5.1); Sodium 139 mmol/L (136-145); TSH (W/Ref FT4) 1.23 uIU/mL (0.36-3.74)
[2021-11-03 06:41] LABS: Vitamin D 25 Total 32.4 ng/mL (30-100)
== END 2021-10-31 15:34 | disposition home or self-care (01) ==
LOC: NCHCN 15:33
PROVIDERS: PCP Family Medicine; Visit Provider Nurse Practitioner Family
DX: R63.5 Abnormal weight gain (principal); D50.9 Iron deficiency anemia, unspecified
CPT/HCPCS: 80048; 82306; 85027; 83540; 83550; 84443

== ENCOUNTER 2021-11-14 01:17 | Outpatient (CLI) | payer BC, SELFPAY ==
--- NOTE | 2021-11-14 14:01 | W.NUTCONSULT ---
Date of service: 11/14/21 Time of Service: 14:01 Nutritional Consult ASSESSMENT: [place] was referred to weight management education. 5''5 174 lbs, BMI: 29. Highest weight 320 lbs, lowest weight 161 lbs. Goal weight: 165 lbs. 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 Has been extremely successful in losing weight and maintained over 150 lbs weight loss over last 10 years. During covid gained upto 190 lbs, now having difficulty getting back to goal of 165 lbs. Currently following a keto diet with 20 g carb, 80-90 g protein, 30-40g fat. Working > 40 hours per week. Uses treadmill on weekends. INTERVENTION: Reviewed meal plan and made adjustements as needed. Encouraged [place] to continue current diet and to use treadmill on weekends. Goal is to lose 1-2 lbs per week. May benefit from liraglutide (trulicity) for weight loss. MONITORING AND EVALUATION: follow up scheduled for 12/12/21 at 1230 Time Spent in Nutritional Counseling and Treatment: 30 min
== END 2021-11-14 01:18 | disposition home or self-care (01) ==
LOC: DS 01:19
PROVIDERS: PCP Family Medicine; Visit Provider Dietitian, Registered
DX: E66.8 Other obesity (principal); Z68.29 Body mass index [BMI] 29.0-29.9, adult; Z71.3 Dietary counseling and surveillance
CPT/HCPCS: 97802

== ENCOUNTER 2021-12-12 01:25 | Outpatient (CLI) | payer BC, SELFPAY ==
--- NOTE | 2021-12-12 11:00 | NS.NUTBLAN_ITS ---
[place] returns for weight management counseling. Wt: 170 lbs, down 4 lbs in last 2 weeks. [place] is very frustrated with her weight loss. She reports eating about 700-800 calories per day with max carb intake of 20 grams. She walks 3-4 miles daily at work. She uses a phone tab to track all her meals and uses her fit bit to track steps. Sesson today focused on China's accomplishments and being able to lose 4 lbs. She wants more weight loss, faster. Explained to her as you age and as you gain and regain over time, the metabolism often slows down, making weight loss more difficult. Recommended again to increase her caloric intake in order to boost her metabolism. [place] resistant but willing to try. Provided macronutrient recommendation to meet 1200 calories per day with emphasis on increased calories by adding food to breakfast and a protein bar or shake in day. Reviewed how increase in caloric intake may initially cause some weight gain, however, overall weight loss will be easier in the long run. Goal wt: 165 lbs Follow up appt. scheduled for 12/26/21 at 1230 pm
== END 2021-12-12 01:26 | disposition home or self-care (01) ==
PROVIDERS: PCP Family Medicine; Visit Provider Dietitian, Registered
DX: E66.8 Other obesity (principal); Z71.3 Dietary counseling and surveillance
CPT/HCPCS: 97803

== ENCOUNTER 2022-01-30 18:21 | Emergency (ER) | payer BC, SELFPAY ==
[2022-01-30 18:37] VITALS: BP 134/105; PULSE 99; RESP 14; TEMP 36.5; O2SAT 94
[2022-01-30 18:49] VITALS: BP 125/74; PULSE 85; RESP 16; TEMP 36.7; O2SAT 99
--- NOTE | 2022-01-30 19:15 | DI.RAD_ITS ---
Exam(s) XR FOOT RT COMPLETE EXAM: XR FOOT RT COMPLETE CLINICAL HISTORY: pain top of foot 3rd and 4th MTs. TECHNIQUE: 2D digital imaging was performed of the right foot. Three images were obtained. AP, obl ique and lateral views were obtained. COMPARISON: CR RIGHT FOOT COMPLETE from 12/14/2017 FINDINGS: BONES: No acute fracture is present. No bony destructive lesion is seen. JOINTS: No dislocation present. SOFT TISSUE: Normal. IMPRESSION: Unremarkable radiographs of the right foot. DATA REPOSITORY: RADIATION DOSE DELIVERED:
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
--- NOTE | 2022-01-30 20:03 | DI.VRAD_ITS ---
PROCEDURE INFORMATION: Exam: XR Right Foot Exam date and time: 01/30/2022 7:44 PM Age: 51 years old Clinical indication: Pain; Foot; Right; Additional info: Foot pain, 3rd and 4th mts TECHNIQUE: Imaging protocol: XR Right foot. Views: 3 or more views. COMPARISON: CR RIGHT FOOT COMPLETE 12/14/2017 2:09 PM FINDINGS: Bones/joints: Noninflamed enthesophyte seen within the region of the Achilles tendon.There is a noninflamed plantar enthesophyte. Bone mineralization is age-appropriate. There is no evidence of fracture. No evidence of dislocation. The joint spaces are adequately preserved; no significant degenerative narrowing and no bony erosion seen. Soft tissues: No radiopaque foreign body present. There is no significant soft tissue swelling present. IMPRESSION: No acute osseous abnormality. Dictated and Authenticated by: Ar Walters MD. Ordering:RONN Angulo MD
[2022-01-30 20:34] VITALS: BP 139/83; PULSE 80; RESP 18; TEMP 36.8; O2SAT 99
== END 2022-01-30 20:35 | disposition home or self-care (01) ==
PROVIDERS: Emergency Provider Student in an Organized Health Care Education/Training Program; PCP Family Medicine
DX: S90.31XA Contusion of right foot, initial encounter (principal); W20.8XXA Other cause of strike by thrown, projected or falling object, initial encounter
CPT/HCPCS: 99283; 73630

== ENCOUNTER → 2022-06-18 17:36 | Outpatient (CLI) | payer BC, SELFPAY ==
--- NOTE | 2022-06-18 16:30 | DI.RAD_ITS ---
Exam(s) XR FOOT LT COMPLETE EXAM: XR FOOT LT COMPLETE CLINICAL HISTORY: FOOT PAIN-M79.673, ENTHESOPATHY-M77.9--CAPSULITIS, SEVERE PAIN L SESAMOID. TECHNIQUE: 2D digital imaging was performed. COMPARISON: CR,XR XR FOOT RT COMPLETE from 01/30/2022 FINDINGS: Four views: There is no evidence of fracture or diastasis of the Lisfranc joint. No pes planus. No hallux valgu s. Minimal degenerative change in the metatarsophalangeal joint of the great toe. A tangential view of the hallucal sesamoid bones appears unremarkable. These exhibit normal appearance and location. IMPRESSION: No significant findings. DATA REPOSITORY: RADIATION DOSE DELIVERED:
--- NOTE | 2022-06-18 17:28 | DI.VRAD_ITS ---
PROCEDURE INFORMATION: Exam: XR Left Foot Exam date and time: 06/18/2022 4:45 PM Age: 51 years old Clinical indication: Other: Severe pain L sesamoid, capsulitis TECHNIQUE: Imaging protocol: Radiologic exam of the Left foot. Views: 3 or more views. COMPARISON: CR LEFT FOOT COMPLETE 12/14/2017 2:09 PM FINDINGS: Bones/joints: Again noted is a tiny posterior calcaneal spur. The plantar arch is maintained. The joint spaces are maintained without degenerative changes. Osseous mineralization is normal. There are no inflammatory osseous erosive changes. There are no acute displaced fractures or subluxations. The sesamoid bones plantar to the 1st metatarsal head demonstrate normal density without focal osseous lesion or osseous erosive change. Soft tissues: Normal. IMPRESSION: 1. Normal-appearing sesamoids plantar to the 1st metatarsal head. 2. Tiny posterior calcaneal spur, as on prior study. Dictated and Authenticated by: Niels Denson MD. Ordering:MANI Dominguez MD
== END ==
PROVIDERS: PCP Family Medicine; Visit Provider Podiatrist Foot & Ankle Surgery
DX: M77.9 Enthesopathy, unspecified (principal); M77.32 Calcaneal spur, left foot
CPT/HCPCS: 73630

== ENCOUNTER 2022-10-28 12:10 | Outpatient (REF) | payer BC, SELFPAY ==
[2022-10-28 14:19] LABS: HCT 41.1 % (36.0-46.0); HGB 13.1 g/dL (11.2-15.7); MCH 30.2 pg (27.0-33.0); MCHC 31.9 % (32.0-36.0); MCV 95 fL (80-95); MPV 11.1 fL (8.0-11.0); Platelet Count 245 10^3/uL (130-400); RBC 4.34 10^6/uL (3.93-5.22); RDW 12.5 % (11.7-14.6); RDW-SD 43.7 fL
[2022-10-28 15:57] LABS: ALT 31 U/L (14-59); AST 21 U/L (15-37); Albumin 4.1 g/dL (3.4-5.0); Alkaline Phosphatase 80 U/L (46-116); Anion Gap 8.7 mmol/L (3-11); BUN 22 mg/dL (7-18); Bilirubin, Total 0.6 mg/dL (0.2-1.0); CO2 28.3 mmol/L (21.0-32.0); CREATININE 0.8 mg/dL (0.55-1.02); Calcium 9.2 mg/dL (8.5-10.1); Chloride 103 mmol/L (98-107); Glucose 94 mg/dL (74-106); Potassium 4.4 mmol/L (3.5-5.1); Sodium 140 mmol/L (136-145); TSH (W/Ref FT4) 1.02 uIU/mL (0.36-3.74)
[2022-10-28 18:40] LABS: Vitamin D 25 Total 30.4 ng/mL (30-100)
== END 2022-10-28 12:11 | disposition home or self-care (01) ==
LOC: NCHCN 12:10
PROVIDERS: PCP Family Medicine; Visit Provider Nurse Practitioner Family
DX: R63.5 Abnormal weight gain (principal); R53.83 Other fatigue
CPT/HCPCS: 80053; 82306; 85027; 84443

== ENCOUNTER 2023-02-09 17:01 | Outpatient (REF) | payer BC, SELFPAY | END 2023-02-09 17:02 | disposition home or self-care (01) | LOC: LBN 17:01 | PROVIDERS: PCP Family Medicine; Visit Provider Nurse Practitioner Family | DX: J02.9 Acute pharyngitis, unspecified (principal) | CPT/HCPCS: 87070 ==

== ENCOUNTER 2023-04-24 13:02 | Outpatient (REF) | payer BC, SELFPAY ==
[2023-04-26 11:40] LABS: Lyme Ab w Rflx to Lyme Confirm Negative (Negative)
[2023-04-27 14:56] LABS: Anaplasma phagocytophilum Negative (Negative); B. miyamotoi PCR Negative (Negative); Babesia divergens/MO-1 Negative (Negative); Babesia duncani Negative (Negative); Babesia microti Negative (Negative); Ehrlichia chaffeensis Negative (Negative); Ehrlichia ewingii/canis Negative (Negative); Ehrlichia muris eauclairensis Negative (Negative)
== END 2023-04-24 13:03 | disposition home or self-care (01) ==
LOC: LBN 13:02
PROVIDERS: PCP Family Medicine; Visit Provider Physician Assistant Medical
DX: Z13.9 Encounter for screening, unspecified (principal)
CPT/HCPCS: 87798; 86618; 87070

== ENCOUNTER 2023-10-18 15:12 | Outpatient (CLI) | payer OTHER, SELFPAY ==
--- NOTE | 2023-10-18 15:37 | DI.RAD_ITS ---
Exam(s) XR HIP RT COMPLETE AP PELVIS EXAM: XR HIP RT COMPLETE AP PELVIS CLINICAL HISTORY: RIGHT HIP PAIN. TECHNIQUE: 2D digital imaging was performed. Two views COMPARISON: No exams were available for comparison FINDINGS: BONES: No acute fracture is present. No bony destructive lesion is seen. JOINTS: No dislocation present. The hip joint spaces are maintained. Mild acetabular spurring. SI j oints and pubic symphysis show mild degenerative changes. SOFT TISSUE: Surgical clips in the pelvis. IMPRESSION: Mild degenerative changes. DATA REPOSITORY: RADIATION DOSE DELIVERED:
== END 2023-10-18 15:13 | disposition home or self-care (01) ==
LOC: DIORS 15:12
PROVIDERS: PCP Family Medicine; Referring Provider Family Medicine; Visit Provider Physician Assistant
DX: M25.551 Pain in right hip (principal)
CPT/HCPCS: 73502

== ENCOUNTER → 2023-10-28 03:26 | Outpatient (CLI) | payer OTHER, SELFPAY ==
--- NOTE | 2023-10-28 | DI.RAD_ITS ---
Exam(s) XR ABDOMEN FLAT PLATE EXAM: 2D digital imaging was performed. CLINICAL HISTORY: ABD PAIN,R10.9,? OBSTRUCTION OR ILEUS. COMPARISON: No exams were available for comparison TECHNIQUE: Supine views of the abdomen performed. FINDINGS: BOWEL GAS PATTERN: Nondistended. Large quantity of stool throughout the colon. CALCIFICATIONS: No radiopaque calcifications. OSSEOUS STRUCTURES: Normal for age. OTHER FINDINGS: Multiple vascular clips. IMPRESSION: 1. Nonobstructive bowel gas pattern. Large quantity of stool. 2. No radiopaque calculi. DATA REPOSITORY: RADIATION DOSE DELIVERED:
== END ==
PROVIDERS: PCP Family Medicine; Visit Provider Family Medicine
DX: R10.9 Unspecified abdominal pain (principal)
CPT/HCPCS: 74018

== ENCOUNTER 2023-11-02 08:37 | Emergency (ER) | payer OTHER, SELFPAY ==
[2023-11-02 08:41] VITALS: BP 143/80; PULSE 91; RESP 16; TEMP 37; O2SAT 100
[2023-11-02] MEDS: Lidocaine/Epinephri/Tetracaine Topical Gel 3 ML TP (08:51)
[2023-11-02] MEDS: Ibuprofen 600 MG TAB PO (08:51)
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
[2023-11-02] MEDS: Acetaminophen 500 MG TAB 1000 MG PO (10:04)
== END 2023-11-02 10:15 | disposition home or self-care (01) ==
PROVIDERS: Emergency Provider Physician Assistant; PCP Family Medicine
DX: S61.112A Laceration without foreign body of left thumb with damage to nail, initial encounter (principal); W26.0XXA Contact with knife, initial encounter
CPT/HCPCS: 90471; 90715; 99283; 99282

== ENCOUNTER 2023-11-17 16:23 | Outpatient (REF) | payer OTHER, SELFPAY ==
[2023-11-17 21:41] LABS: ALT 22 U/L (14-59); AST 17 U/L (15-37); Alkaline Phosphatase 52 U/L (46-116); Anion Gap 11.2 mmol/L (3-11); BUN 18 mg/dL (7-18); Bilirubin, Total 0.4 mg/dL (0.2-1.0); CO2 26.8 mmol/L (21.0-32.0); CREATININE 0.9 mg/dL (0.55-1.02); Calcium 9.2 mg/dL (8.5-10.1); Chloride 103 mmol/L (98-107); Glucose 84 mg/dL (74-106); Lipase 44 U/L (16-77); Potassium 3.9 mmol/L (3.5-5.1); Sodium 141 mmol/L (136-145); Total Protein 7.1 g/dL (6.4-8.2)
[2023-11-17 21:49] LABS: C-Reactive Protein < 0.50 mg/dL (<or=0.5)
== END 2023-11-17 16:24 | disposition home or self-care (01) ==
LOC: NCHCN 16:23
PROVIDERS: PCP Family Medicine; Visit Provider Family Medicine
DX: R68.81 Early satiety (principal)
CPT/HCPCS: 80053; 83690; 85025; 86140

== ENCOUNTER → 2023-12-06 03:09 | Outpatient (CLI) | payer OTHER, SELFPAY ==
--- NOTE | 2023-12-06 13:50 | DI.RAD_ITS ---
Exam(s) XR SHOULDER LT COMPLETE 2+V EXAM: XR SHOULDER LT COMPLETE 2+V CLINICAL HISTORY: LT SHOULDER PAIN, M25.512. TECHNIQUE: 2D digital imaging was performed. Three views. COMPARISON: CR LEFT SHOULDER COMPLETE from 10/18/2012 FINDINGS: BONES: No acute fracture is present. No bony destructive lesion is seen. Small degenerative cyst in the greater tuberosity. JOINTS: No dislocation present. Minimal spurring at the AC joint. Glenohumeral joint space is maint ained. SOFT TISSUE: Normal. IMPRESSION: Mild degenerative changes. DATA REPOSITORY: RADIATION DOSE DELIVERED:
--- NOTE | 2023-12-06 13:54 | DI.RAD_ITS ---
Exam(s) XR CERVICAL SPINE COMP 4-5V EXAM: XR CERVICAL SPINE COMP 4-5V CLINICAL HISTORY: NECK PAIN, M54.2. TECHNIQUE: 2D digital imaging was performed. Six images were obtained. AP, odontoid, lateral and sim ateral oblique images were obtained. COMPARISON: CR CERVICAL SP. LIMITED (TRAUMA) from 10/17/2011 FINDINGS: The odontoid is intact. The lateral masses are well aligned. There is normal alignment of the cervi owen spine. There is mild disc space narrowing at C5-C6. The remaining disc spaces are unremarkable. The vertebral bodies and posterior elements are unremarkable. No acute fracture or subluxation is p resent. There is mild bilateral neural foraminal narrowing at C5-C6. The cervical thoracic junction i s well maintained. The prevertebral soft tissues are unremarkable. Lung apices are clear. IMPRESSION: Degenerative changes at C5-C6 resulting in mild bilateral neural foraminal narrowing. DATA REPOSITORY: RADIATION DOSE DELIVERED:
== END ==
PROVIDERS: PCP Family Medicine; Visit Provider Family Medicine
DX: M47.12 Other spondylosis with myelopathy, cervical region (principal); M25.512 Pain in left shoulder
CPT/HCPCS: 72050; 73030

== ENCOUNTER → 2024-01-04 18:14 | Outpatient (CLI) | payer OTHER, SELFPAY ==
--- NOTE | 2024-01-04 14:15 | DI.MRI_ITS ---
Exam(s) MR UPPER JOINT LT WO EXAM: MR UPPER JOINT LT WO CLINICAL HISTORY: l shoulder pain M75.102 LEFT SHOULDER RATATOR CUFF TEAR OR RUPTURE TECHNIQUE: Multiplanar multisequence MRI of the shoulder was performed. COMPARISON: CR XR SHOULDER LT COMPLETE 2+V from 12/06/2023 FINDINGS: MARROW:There is no evidence of fracture, Hill-Sachs deformity, nor ominous osseous lesions. GLENOHUMERAL JOINT: No dominant joint effusion nor obvious loose intra-articular bodies. No dominant chondral defects. No osteophytes. No degenerative subarticular cysts. \ ROTATOR CUFF MECHANISM: AC JOINT/ACROMIUM: There are moderate degenerative changes in the AC joint. No downgoing osteophytes at this level seen.. There is no evidence of os acromiale. Supraspinatus: There is significant attenuation of the supraspinatus tendon with small area of full-t hickness tearing just above the greater tuberosity. No prominent retraction. No atrophy. Infraspinatus: Small area of partial-thickness tearing on the articular side surface just prior to in sertion on the greater tuberosity. No full-thickness tear. No atrophy. Teres Minor: Intact. No evidence of tear nor muscle atrophy. Subscapularis/anterior cuff: Intact. No abnormal signal at the level of the multipennate insertional fibers. No significant tear nor atrophy. BICEPS TENDON: Exhibits some vertical split tearing within the intertubercular groove. Not detached from the anterosuperior labrum. LABRUM: There is no evidence of tear in the superior labrum posterior to the biceps insertion. Poste rior labrum exhibits tearing.. Anterior superior labrum is torn. The anterior inferior labrum appea rs intact. The inferior labrum appears intact. QUADRILATERAL SPACE: No evidence of mass in the region of the axillary nerve and dorsal circumflex hu meral vessels. Visualized triceps muscle at this level appears unremarkable. IMPRESSION: 1. There is significant attenuation of the supraspinatus tendon as well as a small area of full-thick ness tearing. 2. Smaller partial-thickness tearing articular surface of the infraspinatus tendon. 3. Anterior cuff-subscapularis is intact. 4. Some split tearing of the biceps tendon is noted 5. Multilevel tearing of the labrum evident leon-superiorly and posteriorly DATA REPOSITORY:
== END ==
PROVIDERS: PCP Family Medicine; Visit Provider Student in an Organized Health Care Education/Training Program
DX: M75.112 Incomplete rotator cuff tear or rupture of left shoulder, not specified as traumatic (principal)
CPT/HCPCS: 73221

== ENCOUNTER 2024-02-11 09:57 | Day surgery (SDC) | payer OTHER, SELFPAY ==
[2024-02-11] VITALS (36 sets, daily range): BP systolic 78–140; BP diastolic 55–99; PULSE 56–76; RESP 12–22; TEMP 36.3–36.9; O2SAT 98–100; BMI 34.9
--- NOTE | 2024-02-11 07:17 | W.PM.DSUDISC ---
Date of service: 02/11/24 Time of Service: 15:30 Discharge Plan Disposition Patient Disposition: Home Condition: Stable Discharge Details Attending Provider: Noam Irving Primary Care Provider: Melania Castle Home Meds and New Rx's Prescriptions: New naproxen 250 mg tablet 250 - 500 mg PO BID PRN (Reason: moderate pain and swelling) Qty: 40 0RF oxycodone 5 mg tablet 5 - 10 mg PO .q4-6h PRN (Reason: severe pain) Qty: 18 0RF Continued escitalopram oxalate [Lexapro] 5 mg tablet 5 mg PO DAILY cetirizine 10 mg tablet 10 mg PO DAILY PRN acyclovir 400 mg tablet 400 mg PO TID PRN No Action omeprazole 20 mg capsule,delayed release(DR/EC) Discharge Instructions Additional Instructions: Surgery: Left shoulder arthroscopy with rotator cuff repair (supraspinatus), biceps tenodesis, extensive debridement, and subacromial decompression. Activity: For 6 weeks, you should keep your arm at your side in a neutral position at all times except for physical therapy. Do not try to lift or raise your arm using your own muscles. You should use the sling whenever you are out of the house. You may have to adjust the abduction pillow or remove it for comfort. At home it is best to remove the sling and rest the arm on a pillow at your side or support the operative side with your other hand. You may allow the arm to dangle at your side. A physical therapy prescription will be sent electronically to begin in about 3 weeks. STANDARD protocol. Work restrictions: No use of Left upper extremity for 3 months. May use left hand for gentle manual tasks like writing/typing when comfortable. Sling at work for 6 weeks. Light duty at 3 months, moderate at 4 months, and heavy at 6 months. Prescriptions: Naproxen 250 mg take 1-2 every 12 hours with a meal as needed for moderate pain Oxycodone 5 mg take 1-2 every 4-6 hours as needed for severe pain You may use [id number] Tylenol (acetaminophen) as needed for mild pain. These pain medications may be taken all at once or in different combinations as needed. Also, recommend Colace (docusate) as a stool softener as surgery and pain medicine cause constipation. You may try [id number]-[id number] diphenhydramine (Benadryl) 25-50 mg nightly as a sleep aid Dressings: Remove shoulder bandage after 3 days. Leave the sticky Steri-Strips in place until they fall off or remove them after you shower. Cover the incisions with Band-Aids or leave them open to air. You may shower after 5 days. Follow-up: 10-[address] Irving You may take off the leg compression stockings this evening at home. You may also leave them on a few days longer if you have a history of leg swelling or edema. Let us know right away if you develop any redness, drainage, fevers, chest pain, or trouble breathing. Do not drink alcohol or drive for at least 24 hours after anesthesia. Please call the office during business hours with any questions or concerns. Discharge Orders Discharge Orders: Discharge Order (Routine); Ordered 02/11/24 Ordered By: Rema Yepez DS: Diagnosis Discharge Diagnosis (1) Left rotator cuff tear: Status: Acute
--- NOTE | 2024-02-11 07:21 | W.PM.OP ---
Date of service: 02/11/24 Time of Service: 12:00 Operative Note Operative Note DATE OF PROCEDURE: 02/11/24 PRE-OP DIAGNOSIS: Left: 1. Rotator cuff tear 2. LHB tendinopathy 3. Bursitis 4. Subacromial impingement POST-OP DIAGNOSIS: same PROCEDURE: Left: 1. Rotator cuff repair, CPT# 70348. This involved repair of the supraspinatus using anchors and sutures to reattach the rotator cuff back to the footprint of the greater tuberosity. 2. Arthroscopic biceps tenodesis, CPT# 42007. This involved arthroscopically suturing and reattaching the long head of the biceps tendon to the proximal humerus at the superior margin of the bicipital groove with a screw at the correct tension. 3. Extensive debridement, CPT# 77724. This involved using arthroscopic hand instruments, power instruments, and radiofrequency instruments to release the long head of the biceps tendon and debride areas of labral tearing, synovitis, and chondromalacia about the glenohumeral joint working anteriorly, superiorly and posteriorly. 4. Subacromial decompression with partial acromioplasty, CPT# 57633. This involved using arthroscopic power instruments and a radiofrequency wand to complete a bursectomy and smooth the undersurface of the acromion. The real estate administrative assistant was medically required in order to help assist in techniques above, which require positioning the arm, holding the arthroscope, and manipulating multiple instruments and sutures at the same time. This cannot be done without the help of an experienced real estate administrative assistant. SURGEON: Noam Irving POST MANAGER: Rema Yepez ANESTHESIA TYPE: Local By Surgeon, General LMA/ETT and Primary Nerve Block Refer to Anesthesia Record ESTIMATED BLOOD LOSS: 5 PATHOLOGY: none sent COMPLICATIONS: None Patient was transported to: PACU Patient's condition: stable Implants: Arthrex: 5.5mm SwiveLocks x 1 Indications: The patient was diagnosed with the above conditions and appropriately indicated for surgical intervention. Please see complete medical record for details. Findings: Exam under anesthesia: Full range of motion, no Glenohumeral joint: Significant anterior superior posterior synovitis, degenerative moderate chondromalacia throughout the glenohumeral joint with degenerative type posterior anterior superior labral tearing fraying, SLAP tear, otherwise intact biceps anchor, intact subscapularis, high-grade near?complete articular sided central supraspinatus rotator cuff tear. Subacromial space: Thin intact bursal supersize remnant, readily elevated to reveal small bursal to moderately sized full-thickness tear. Mild extension beneath infraspinatus. Significant supraspinatus tendon thinning and diminished subacromial space as expected. No significant undersurface acromial or distal clavicle impingement on the bursal rotator cuff. Procedure Description: In the operating room, general anesthesia was induced. Bilateral shoulders were examined. The patient was positioned in the beachchair position. All bony prominences were well-padded. Preoperative antibiotics were administered. The shoulder was prepped and draped in the usual sterile fashion. The correct patient, procedure, and side of the procedure were all verified prior to incision. Starting through the posterior portal a standard complete diagnostic arthroscopy was performed of the glenohumeral joint including inspection of the long head of the biceps, anterior and superior labrum, subscapularis tendon, supraspinatus and infraspinatus tendons, and axillary recess. The glenoid and humeral head cartilage as well as the posterior labrum were inspected from an anterior viewing portal. Significant findings and interventions noted above as part of the extensive debridement. An all-arthroscopic suprapectoral biceps tenodesis was performed through an anterior portal using a Loop N Tack method with a SutureTape FiberLink cinched around and through the tendon. The biceps was tenotomized from the labrum and repair suture brought through the full-thickness rotator cuff tear for later combined repair with the rotator cuff. Starting through the posterior portal, the arthroscope was directed into the subacromial space. A lateral 50 yard line lateral portal was created. A combination of power instruments and a radiofrequency ablator were used to debride bursitis anteriorly, posteriorly, and laterally as well as expose and smooth bone spurring on the undersurface of the acromion. The coracoacromial ligament was mostly released. The bursectomy was completed viewing laterally and working from posteriorly and the rotator cuff was thoroughly inspected with findings noted above. The thin bursal distal supraspinatus remnant was carefully elevated sharply exposing the small full-thickness bursal central defect that was more medium sized at the articular margin. Working through the tear the fibrinous bone changes were debrided with the shaver and rasp to prepare a fresh bleeding bone bed optimizing tendon and bone healing. The tear was inspected and probed through arm position and tested with the cuff grasper and although the rotator cuff was significantly thinned throughout, the tear was not too large and the anterior and posterior margins especially centrally to laterally were stable. Given the diminutive joint size and subacromial space, decision was made to proceed with a single anchor repair. A FiberTape was shuttled through the central portion of the supraspinatus at the appropriate margin medially in a horizontal mattress configuration. A suture tape FiberLink was then placed at the posterior margin of the tear incorporating the partial infraspinatus involvement. These rotator cuff repair sutures were then tensioned through the rigid clear Whit cannula insert to a central lateral spot with excellent provisional reduction of the rotator cuff tear and greater tuberosity coverage. The undersized punch was then used given somewhat poor tissue quality for an oversized 5.5 mm SwiveLock anchor bio composite loaded with the rotator cuff repair sutures and separately the biceps repair suture. The anchor was deployed completing the biceps tenodesis with reasonable fixation strength with appropriate tension on the rotator cuff repair with full coverage and nice suture spread throughout the rotator cuff and across the greater tuberosity. The repair demonstrated excellent stability through testing and motion. Lastly given the degenerative changes and cuff thinning the undersurface the acromion was abraded over the repair area to release bone marrow healing elements. The shoulder was drained of arthroscopic fluid. All portal sites were copiously irrigated. These incisions were closed using 3-0 Monocryl in a buried fashion and then covered with Mastisol, Steri-Strips, Xeroform, dry gauze, and ABDs. The dressings were covered and secured with Medipore tape. The operative extremity was placed into a sling for immobilization. The patient awoke from anesthesia without complication and was transferred to the recovery room in a stable condition.
[2024-02-11] MEDS: Lactated Ringers 1,000 ML 30 ML IV (10:27)
--- NOTE | 2024-02-11 11:05 | ANES.PREOP_ITS ---
General Info Date of Service Date Performed: 02/11/24 Height: 5 ft 2 in Weight: 86.7 kg Body Mass Index (BMI): 34.9 Surgical Procedure: Operation Date: 02/11/24 11:10 Proposed Procedure Side Surgeon p Shoulder Rotator Cuff Arthroscopic w/Extensive Debridement, Biceps Tenodesis, Subacromial Decompression Left Noam Irving MD Meds Allergies and Home Medications Allergies Allergy/AdvReac Type Severity Reaction Status Date / Time cortisone Allergy Severe circulatory/dermal Verified 02/11/24 10:05 reaction Penicillins Allergy Intermediate FACIAL Verified 02/11/24 10:05 SWELLING, lips stevioside [From Stevia] Allergy Intermediate rash Verified 02/11/24 10:05 Sulfa (Sulfonamide Allergy Skin Rash Verified 02/11/24 10:05 Antibiotics) venlafaxine HCl AdvReac Unknown felt Verified 02/11/24 10:05 [From Effexor] weird, eyes becam dilated per pt Home Medication Medication Instructions Recorded acyclovir 400 mg tablet 400 mg PO TID PRN 12/26/18 cetirizine 10 mg tablet 10 mg PO DAILY PRN 09/28/23 escitalopram oxalate 5 mg tablet 5 mg PO DAILY 09/28/23 (Lexapro) naproxen 250 mg tablet 250 - 500 mg (1 - 2 x 250 mg) PO 02/10/24 BID PRN moderate pain and swelling #40 tabs oxycodone 5 mg tablet 5 - 10 mg (1 - 2 x 5 mg) PO .q4-6h 02/10/24 PRN severe pain #18 tabs omeprazole 20 mg capsule,delayed mg 02/11/24 release Current Visit Medications: Current Medications Generic Name Dose Route Start Last Admin Trade Name Freq PRN Reason Stop Dose Admin Ringer's Solution 1,000 mls @ 30 mls/hr 02/11/24 06:00 02/11/24 10:27 IV 02/11/24 23:59 30 mls/hr INFUSION JANETTE Administration Cefazolin Sodium/Dextrose 2 gm in 50 mls @ 100 mls/hr 02/11/24 06:00 Ancef Duplex IVPB 02/11/24 23:59 PREOP JANETTE Tranexamic Acid/Sodium Chloride 1,000 mg in 100 mls @ 600 mls/hr 02/11/24 06:00 IVPB 02/11/24 23:59 PREOP JANETTE IV Miscellaneous Supplies 1 each 02/11/24 06:00 Iv Access IV 02/11/24 23:59 DIRECTED JANETTE Oxycodone HCl 0 mg 02/11/24 07:17 Oxycodone 5 Mg Tab PO 03/12/24 07:16 Q3H PRN PRN Pain Sodium Chloride 0 ml 02/11/24 06:00 Normal Saline Flush 10 Ml Syr IV 02/11/24 23:59 PRN PRN Sodium Chloride 0 ml 02/11/24 06:00 Normal Saline 10 Ml Vial IJ 02/11/24 23:59 DIRECTED PRN Sterile Water 0 ml 02/11/24 06:00 Water,Injection,Sterile 10 Ml Vial IJ 02/11/24 23:59 DIRECTED PRN PFSH Active Problems Active Problems: Problem Status Onset Code Left rotator cuff tear M75.102 Trochanteric bursitis, right hip M70.61 Pain in left foot M79.672 Plantar verruca B07.0 Foot pain M79.673 Capsulitis M77.9 Other disorders of bone and cartilage M94.8X9, M89.8X9 OAB (overactive bladder) N32.81 Microscopic hematuria R31.29 Allergic rhinitis due to other allergen 04/01/15 J30.89 Bladder spasms 01/07/16 N32.89 Constipation 11/21/15 K59.00 Dyspepsia 11/21/14 R10.13 Factor V Leiden mutation 10/11/17 D68.51 Fibromyalgia 10/25/14 M79.7 Keratosis pilaris 07/31/15 L85.8 Left lower quadrant pain 04/29/16 R10.32 Urge incontinence 01/07/16 N39.41 Urinary frequency 12/22/11 R35.0 Varicose veins of bilateral lower extremities with pain 03/11/16 I83.813 Vitamin D deficiency 12/22/11 E55.9 IBS (irritable bowel syndrome) K58.9 Toxoplasmosis B58.9 Medical History Medical History Eating disorder (12/22/11) Normal endoscopy 09/27/18 Upper GI [facility]-normal esophagus,stomach and duodenum Abdominal pain colonoscopies by Dr. Pickett @ . No recurrance of inflammatory bowel disease. 08/2015 Nl renal and abd CT. Hx of supraventricular tachycardia Pt advised to take Metoprolol if recurrent sx. Echo recommended for 07/2016. Fibromyalgia Surgical History Surgical History History of abdominoplasty r shoulder surgery (02/17/16) [facility] Ligation of fallopian tube (~2008) Tonsillectomy (~2012) TENNIS ELBOW (~2010) Open Carpal Tunnel release (~2009) Abdominal hysterectomy (~2008) EGD - MAC 1993; [facility] Colonoscopy - MAC 1993 2007 2012 Tobacco Smoking/Tobacco Use Status: Never Alcohol Alcohol Intake: current Alcohol intake frequency: holidays/special occasions only Substance Use Substance use: Never Substance use type: does not use Vital Signs and Lab Results Vital Signs Most Recent Vital Signs in EMR: Most Recent Vital Signs Temp Pulse Resp BP Pulse Ox 36.4 C L 73 16 112/73 100 02/11/24 10:09 02/11/24 10:09 02/11/24 10:09 02/11/24 10:09 02/11/24 10:09 Lab Results Blood Type / Crossmatch: No Data to Display Complete Blood Count: No Data to Display Complete Metabolic Panel: No Data to Display Liver Function Panel: No Data to Display Coagulation Panel: No Data to Display Cardiac Panel: No Data to Display Arterial Blood Gas: No Data to Display Venous Blood Gas: No Data to Display Pancreas Panel: No Data to Display Thyroid Panel: No Data to Display Infectious Disease: No Data to Display Blood Cultures: No Data to Display Toxicology Panel: No Data to Display Imaging and Studies Imaging and Studies Study information below may be from another EMR and interpreted by another provider. Please see original notes in EMR for more complete details. Echocardiogram Summary: ate of study: 07/23/2016 Transthoracic Echocardiography M-mode, complete 2D, complete spectral Doppler, and color Doppler *STUDY CONCLUSIONS* Summary: 1. Left ventricle: The cavity size was normal. Wall thickness was normal. Systolic function was normal. The estimated ejection fraction was 60-65%. Wall motion was normal; there were no regional wall motion abnormalities. 2. Aortic valve: There was trivial regurgitation. 3. Right ventricle: The cavity size was normal. Wall thickness was normal. Systolic function was normal. Anesthesia Assessment and Plan Anesthesia History Personal History: No History of Anesthesia Complications Family History: No Family History of Anesthesia Complications Exercise Tolerance Exercise Tolerance: Metabolic Equivalents>4 Pertinent Negatives Pertinent Negatives: No Symptoms of GERD, No Major Cardiovascular Symptoms or Complaints, No Major Pulmonary Symptoms or Complaints and No History of CVA/TIA Cardiac & Pulmonary Exam Cardiac Exam: Normal S1/S2 Heart Sounds Pulmonary Exam: Clear Bilateral Breath Sounds Implantable Cardiac Device Does patient have a Pacemaker or an ICD?: No Airway Exam Known Difficult Airway: No Mallampati Class: 1 Mouth Opening: Normal (> 3cm) Thyromental Distance: Greater than 3 cm Neck Range of Motion: Full ROM Neck Circumference: Normal Teeth Condition: Removable Dentures/Plates Upper and Removable Dentures/Plates Lower ASA Classification ASA Score: ASA 3 Emergency Case?: No NPO Status NPO Status: NPO Clears >2 hours, Solids >8 hours Anesthesia Plan Resuscitation Status: Full Code Anesthesia Technique: General Anesthesia Airway Planned: Endotracheal Tube Pain Management: Surgeon and patient request nerve block Monitors Used: Standard Monitors
[2024-02-11] MEDS: ceFAZolin 2 GM/50 ML BAG IVPB (12:50)
[2024-02-11] MEDS: TRANEXAMIC ACID/SOD. CHL. 1,000 MG/100 ML BAG 600 MG IVPB (13:03)
[2024-02-11] MEDS: Bupivacaine 0.25% Pres-Free W/EPI 30 ML VIAL (13:32)
--- NOTE | 2024-02-11 13:54 | W.ANESNERVE ---
Nerve Block Single Injection Procedure Date and Time Date Performed: 02/11/24 Procedure Start: 11:29 Location Where Procedure Performed Procedure Location: Day Surgery Unit Reason Performed: Postoperative Analgesia Requesting Provider: Noam Irving Timeout Performed Timeout Performed: Yes Monitoring Used ECG, Blood Pressure, SpO2 and See EMR for corresponding vital signs Sterility Sterility: Hand Hygiene, Surgical Cap, Surgical Mask, Sterile Gloves and Chlorhexidine Sedation Given During Procedure Sedation Given (Indicate Dose Given): Versed IV Dose:: 2mg Patient Mental Status Patient Mental Status: Awake Nerve Block 1st Nerve Block: Laterality: Left Block Type: Interscalene Ultrasound Image Saved?: Yes Needle / Catheter Used: 80mm SonoPlex II Local Anesthetic Bolus (Indicate Dose Given): Lidocaine used for local infiltration of skin, Injected in 3-5ml increments after negative blood aspiration, Bupivacaine 0.5% Dose:: 10mL and Exparel Dose:: 10mL Additives (Indicate Dose Given): None Ultrasound: Sterile probe cover and gel used Nerve Stimulator: Supplement to Ultrasound use and No twitch or parasthesia noted < 0.5 mA Paresthesia: None Procedure Tolerated: No Complications Procedure Outcome: Successful Procedure Comment: Alessandro Nj assist. Performed By: Nathalia Souza
--- NOTE | 2024-02-11 15:26 | W.ANESPOSTOP ---
Postoperative Evaluation Date, Time and Location Date Performed: 02/11/24 Time Performed: 15:26 Patient Location: Day Surgery Unit Vital Signs Most Recent Imported Vital Signs: Most Recent Vital Signs Temp Pulse Resp BP Pulse Ox 36.5 C 61 17 113/99 H 98 02/11/24 15:23 02/11/24 15:20 02/11/24 15:23 02/11/24 15:20 02/11/24 15:23 Pain Score Most Recent Pain Score: Most Recent Pain Score Pain Level 0 02/11/24 15:23 Assessment Mental Status: Awake (Alert & Oriented to Patient Baseline) Airway and Respiratory Function: Patent airway with normal (patient baseline) respiratory exam Cardiovascular Function: Hemodynamically Stable Hydration Status: Adequately Hydrated Nausea & Vomiting: No Nausea or Vomiting Pain: Pt. Denies Any Pain Peripheral Nerve Block: Regional nerve block not resolved at time of post operative discharge
== END 2024-02-11 17:11 | disposition home or self-care (01) ==
LOC: SUR 09:58
PROVIDERS: PCP Family Medicine; Visit Provider Student in an Organized Health Care Education/Training Program
PROC: (CPT 29827; principal; 2024-02-11 11:00)
DX: D68.51 Activated protein C resistance; M75.52 Bursitis of left shoulder; S46.012A Strain of muscle(s) and tendon(s) of the rotator cuff of left shoulder, initial encounter; X58.XXXA Exposure to other specified factors, initial encounter; S46.222A Laceration of muscle, fascia and tendon of other parts of biceps, left arm, initial encounter
CPT/HCPCS: 29827; 29828; 29823; 29826; 76942; C9290; J0665; J0690; J1100; J1885; J2001; J2250; J2371; J2405; J2704

== ENCOUNTER 2024-04-24 02:33 | Outpatient (CLI) | payer OTHER, SELFPAY ==
--- NOTE | 2024-04-24 | DI.MAMMO_ITS ---
Exam(s) MAMMO SCREENING EXAM: MAMMO SCREENING CLINICAL HISTORY: SCREENING, Z12.31 TECHNIQUE: Bilateral full field digital CC and MLO mammographic images were obtained with 3D tomosyn thesis and utilizing computer aided detection (CAD). COMPARISON: Available for comparison. FINDINGS: Masses/Architectural Distortion: None seen. Microcalcifications: No suspicious pleomorphic-type are seen. Skin Thickening/Nipple Retraction: None. IMPRESSION: 1. No significant interval change with no specific features of malignancy noted. 2. Unless there is more urgent need, screening mammography is recommended, as per [employer] guidelines. BI-RADS Category 1 - Negative Breast Density - Category B - Scattered areas of fibroglandular density Breast density category C or D implies that the patient has dense breast tissue. Dense breast tissue is very common and is not abnormal but dense breast tissue can make it harder to find cancer on a ma mmogram. Also, dense breast tissue may increase their breast cancer risk. This information about the result of the mammogram report was provided to the patient to raise their awareness. Use this report when you speak with the patient about their risks for breast cancer, which includes their family hist ory. At that time, you may recommend for more screening tests (Ultrasound or MRI) as they might be us eful based on their risk. A negative radiographic report should not delay biopsy if a dominant or clinically suspicious mass is present. Up to ten percent of cancers are not identified on mammography. A negative report may reinforce clinical impression. Adenosis and dense breasts may obscure an underlying neoplasm. False positive reports average 6 to 10%. Patient will receive a letter notifying them of these results.
== END 2024-04-24 02:53 ==
LOC: DI 02:33
PROVIDERS: PCP Family Medicine; Visit Provider Family Medicine
DX: Z12.31 Encounter for screening mammogram for malignant neoplasm of breast (principal)
CPT/HCPCS: 77063; 77067

== ENCOUNTER 2024-08-04 13:36 | Outpatient (CLI) | payer OTHER, SELFPAY ==
[2024-08-04 13:31] LABS: Abs Immature Grans 0.02 10^3/uL (0.0-0.06); Absolute Basophil Count 0.09 10^3/uL (0.0-0.2); Absolute Eosinophil Count 0.64 10^3/uL (0.0-0.7); Absolute Lymphocyte Count 2.89 10^3/uL (1.2-3.4); Absolute Monocyte Count 0.86 10^3/uL (0.1-0.8); Absolute Neutrophil Count 4.59 10^3/uL (1.2-6.7); HCT 38.8 % (36.0-46.0); HGB 12.7 g/dL (11.2-15.7); Immature Grans % 0.2 %; Lymphocytes % 31.8 %; MCH 30.8 pg (27.0-33.0); MCHC 32.7 % (32.0-36.0); MCV 94 fL (80-95); MPV 10.5 fL (8.0-11.0); Monocytes % 9.5 %; Neutrophils % 50.5 %; Platelet Count 249 10^3/uL (130-400); RBC 4.12 10^6/uL (3.93-5.22); RDW 12.6 % (11.7-14.6); RDW-SD 44.4 fL; WBC 9.09 10^3/uL (4.4-10.8)
[2024-08-04 13:37] LABS: ESR 14 mm/hr (0-30)
[2024-08-04 13:44] LABS: C-Reactive Protein < 0.50 mg/dL (<or=0.5)
== END 2024-08-04 13:37 | disposition home or self-care (01) ==
LOC: LBO 13:36
PROVIDERS: Nurse Practitioner Family; PCP Family Medicine; Visit Provider Student in an Organized Health Care Education/Training Program
DX: M25.512 Pain in left shoulder (principal); S46.012D Strain of muscle(s) and tendon(s) of the rotator cuff of left shoulder, subsequent encounter
CPT/HCPCS: 36415; 85652; 85025; 86140

== ENCOUNTER 2024-08-11 00:22 | Outpatient (CLI) | payer OTHER, SELFPAY ==
--- NOTE | 2024-08-11 08:55 | DI.MRI_ITS ---
Exam(s) MR UPPER JOINT LT WO EXAM: MR UPPER JOINT LT WO CLINICAL HISTORY: L SHOULDER PAIN S46.012D STRAIN ROTATOR CUFF LT SHOULDER. TECHNIQUE: Multiplanar multisequence MRI was performed. COMPARISON: CR XR SHOULDER LT COMPLETE 2+V from 12/06/2023 MR MR UPPER JOINT LT WO from 01/04/2024 FINDINGS: The examination is limited due to patient motion artifact. BONES: There is no fracture or contusion pattern. Interval changes of a rotator cuff repair. JOINTS: There are mild degenerative changes seen at the acromioclavicular joint. The glenohumeral tank int is normal. TENDONS: Supraspinatus: The supraspinatus tendon is intact. No evidence of a full-thickness tear. There is t endinosis of the supraspinatus tendon. Infraspinatus: Unremarkable. Subscapularis: Unremarkable. Teres Minor: Unremarkable. Biceps and [place]: The biceps tendon is seen within the bicipital groove. There is intermediate sign al seen within the tendon which may represent tendinosis. MUSCLES: There is fatty atrophy of the teres minor muscle. The remaining rotator cuff muscles show n ormal signal and size. GLENOID LABRUM: There is intermediate signal and decrease in size of the posterior superior labrum scott ggesting degeneration. SOFT TISSUES: Unremarkable. LIGAMENTS: Unremarkable. OTHER: There is fluid seen in the subacromial subdeltoid bursa. IMPRESSION: 1. Interval rotator cuff repair. 2. No evidence of a tear of the rotator cuff tendons. 3. Supraspinatus and biceps tendinosis. 4. Degenerative changes seen in the posterior superior labrum. 5. Fatty atrophy of the teres minor muscle. No evidence of a soft tissue mass. DATA REPOSITORY:
== END 2024-08-11 00:42 ==
LOC: DI 00:22
PROVIDERS: PCP Family Medicine; Visit Provider Student in an Organized Health Care Education/Training Program
DX: S46.012D Strain of muscle(s) and tendon(s) of the rotator cuff of left shoulder, subsequent encounter (principal); X58.XXXD Exposure to other specified factors, subsequent encounter
CPT/HCPCS: 73221

== ENCOUNTER 2024-09-22 11:31 | Outpatient (REF) | payer OTHER, SELFPAY | END 2024-09-22 11:32 | disposition home or self-care (01) | LOC: LBN 11:31 | PROVIDERS: PCP Family Medicine; Visit Provider Obstetrics & Gynecology | DX: R30.0 Dysuria (principal); R82.89 Other abnormal findings on cytological and histological examination of urine | CPT/HCPCS: 87086 ==

== ENCOUNTER 2024-11-25 16:59 | Outpatient (REF) | payer OTHER, SELFPAY | END 2024-11-25 17:00 | disposition home or self-care (01) | LOC: LBN 16:59 | PROVIDERS: PCP Family Medicine; Visit Provider Physician Assistant Medical | DX: J02.9 Acute pharyngitis, unspecified (principal) | CPT/HCPCS: 87070 ==

== ENCOUNTER 2024-11-26 13:12 | Emergency (ER) | payer OTHER, SELFPAY ==
[2024-11-26 13:16] VITALS: BP 138/86; PULSE 105; RESP 20; TEMP 37.1; O2SAT 98
[2024-11-26 13:25] VITALS: BP 138/86; PULSE 105; RESP 20; TEMP 37.1; O2SAT 98
[2024-11-26] MEDS: Clindamycin 300 MG CAP PO (13:48)
[2024-11-26 13:50] VITALS: PULSE 101; O2SAT 100
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
== END 2024-11-26 13:50 | disposition home or self-care (01) ==
PROVIDERS: Emergency Provider Emergency Medicine; PCP Family Medicine
DX: K11.20 Sialoadenitis, unspecified (principal); I89.1 Lymphangitis
CPT/HCPCS: 99283

== ENCOUNTER 2024-12-01 13:57 | Outpatient (REF) | payer OTHER, SELFPAY ==
[2024-12-01 14:33] LABS: Abs Immature Grans 0.02 10^3/uL (0.0-0.06); Absolute Basophil Count 0.12 10^3/uL (0.0-0.2); Absolute Eosinophil Count 0.77 10^3/uL (0.0-0.7); Absolute Lymphocyte Count 2.26 10^3/uL (1.2-3.4); Absolute Neutrophil Count 4.41 10^3/uL (1.2-6.7); Basophils % 1.5 %; Eosinophils % 9.4 %; HCT 41.9 % (36.0-46.0); HGB 13.5 g/dL (11.2-15.7); Immature Grans % 0.2 %; Lymphocytes % 27.6 %; MCHC 32.2 % (32.0-36.0); MCV 93 fL (80-95); MPV 10.9 fL (8.0-11.0); Monocytes % 7.3 %; Platelet Count 246 10^3/uL (130-400); RDW-SD 44.5 fL; WBC 8.18 10^3/uL (4.4-10.8)
[2024-12-01 15:18] LABS: ALT 22 U/L (14-59); AST 20 U/L (15-37); Albumin 3.9 g/dL (3.4-5.0); Alkaline Phosphatase 87 U/L (46-116); Anion Gap 9.4 mmol/L (3-11); BUN 21 mg/dL (7-18); Bilirubin, Total 0.6 mg/dL (0.2-1.0); CO2 28.6 mmol/L (21.0-32.0); CREATININE 0.7 mg/dL (0.55-1.02); Calcium 9.5 mg/dL (8.5-10.1); Chloride 105 mmol/L (98-107); Estimated GFR 101.44 (mL/min/1.73m2); Glucose 90 mg/dL (74-106); Potassium 4.5 mmol/L (3.5-5.1); Sodium 143 mmol/L (136-145); Total Protein 7.3 g/dL (6.4-8.2)
== END 2024-12-01 13:58 | disposition home or self-care (01) ==
LOC: NCHCN 13:57
PROVIDERS: PCP Family Medicine; Visit Provider Family Medicine
DX: R53.83 Other fatigue (principal)
CPT/HCPCS: 80053; 85025

== ENCOUNTER 2024-12-15 12:16 | Outpatient (CLI) | payer OTHER, SELFPAY ==
[2024-12-15 13:01] LABS: ESR 6 mm/hr (0-30)
[2024-12-15 13:27] LABS: D-Dimer 580 ng/mlFEU (<500)
[2024-12-15 13:36] LABS: Iron 84 ug/dL (50-170); Total Iron Binding Capacity 307 ug/dL (250-450); Transferrin Sat 27 % (15-50)
[2024-12-15 14:00] LABS: Ferritin 138 ng/mL (8-252); TSH 1.52 uIU/mL (0.36-3.74); Vitamin D 25 Total 27 ng/mL (30-100)
[2024-12-15 14:19] LABS: Creatine Kinase 93 U/L (26-192); FREE T4 1.12 ng/dL (0.76-1.46); NT-proBNP 318 pg/mL (<300)
[2024-12-19 10:32] LABS: Estradiol, Mass Spectrometry <10 pg/mL; Estrone 13 pg/mL
[2024-12-21 12:50] LABS: Testosterone, Free <0.13 ng/dL (<0.13-0.90)
== END 2024-12-15 12:17 | disposition home or self-care (01) ==
LOC: LBO 12:16
PROVIDERS: PCP Family Medicine; Visit Provider Family Medicine
DX: M79.10 Myalgia, unspecified site (principal); R63.5 Abnormal weight gain; R06.00 Dyspnea, unspecified; R51.9 Headache, unspecified
CPT/HCPCS: 36415; 82306; 82550; 84402; 84403; 85652; 82670; 82679; 82728; 83540; 83550; 83880; 84439; 84443; 85379

== ENCOUNTER 2024-12-18 14:18 | Outpatient (CLI) | payer OTHER, SELFPAY ==
--- NOTE | 2024-12-18 14:30 | DI.US_ITS ---
APPROVED REPORT EXAM: Comprehensive 2D, Doppler, and color-flow Echocardiogram Patient Location: Out-Patient Fuse Spooler: Jason Snow RDCS (AE) Indications: VERGARA Other Information Study Quality: Good Conclusion Normal left ventricular wall thickness and chamber size. Ejection fraction is 65%. Wall motion is n ormal Normal right ventricular size and function Both atria are normal in size There are no structural valvular abnormalities Trivial aortic regurgitation Mild tricuspid regurgitation. Estimated right ventricular systolic pressure is 34 mmHg Wall motion Left Ventricle The left ventricle is normal size. The left ventricular systolic function is normal. The left ventric ular ejection fraction is within the normal range. There is normal left ventricular wall thickness. T here is normal LV segmental wall motion. There is no ventricular septal defect visualized. LVEF is 65 %. Right Ventricle The right ventricle is normal size. The right ventricular systolic function is normal. Atria The left atrium size is normal. The right atrium size is normal. The interatrial septum is intact wit h no evidence for an atrial septal defect. Aortic Valve The aortic valve is normal in structure. Aortic valve is trileaflet. There is no aortic valvular sten osis. Trace aortic regurgitation. Mitral Valve The mitral valve is normal in structure. No evidence of mitral valve stenosis. There is no mitral emanuel ve regurgitation noted. Tricuspid Valve The tricuspid valve is normal in structure. There is no tricuspid valve stenosis. Mild tricuspid regu rgitation. The RVSP is 34 mmHg. Pulmonic Valve The pulmonary valve is normal in structure. There is no pulmonic valvular stenosis. There is no pulmo shabbir valvular regurgitation. Great Vessels The aortic root is normal in size. The ascending aorta is normal in size. Aortic arch is not well vis ualized. IVC is normal in size and collapses >50% with inspiration. Pericardium There is no pericardial effusion. 2D Dimensions IVSD d PLAX 0.67 cm F: 0.6-1.0 Ao Root d 2.32 cm F: 2.7 - 3.3 LVPW d PLAX 0.58 cm F: 0.6 - 1.0 Ao Asc Diam d 2.57 cm F: 2.3 - 3.1 LVID d PLAX 4.09 cm F: 3.8 - 5.2 LVDs 2.74 cm F: 2.2 - 3.5 LV EF Teichholz 62.0 % FS 33.00 % LV EDV (Teich) 73.7 mL LV ESV (Teich) 28.0 mL Stroke Vol Index (Teich) 24.45 M-Mode TAPSE 2.63 cm (M/F) >1.7 Auto EF LV EDV A4C 73.0 mL LV EDV A2C 67.3 mL LV EDV BP 71.6 mL LV ESV A4C 30.5 mL LV ESV A2C 25.6 mL LV ESV BP 27.5 mL LVEF(%) A4C 58.3 % LVEF(%) A2C 62.0 % LVEF(%) BP 61.5 % LV SV A4C 42.6 ml LV SV A2C 41.8 ml LV SV BP 44.1 ml LV CO A4C 3.4 L/min LV CO A2C 3.2 L/min LV CO BP 3.3 L/min HR A4C 79.65 BPM HR A2C 75.94 BPM LV EDV Index (BP) LA Volume LA Length A4C 3.5 cm LA Length A2C 4.2 cm LA Area A4C s 8.31 cm2 LA Area A2C s 10.93 cm2 LA Vol A4C A-L 16.63 mL LA Vol A2C A-L 24.23 mL LA Vol Biplane A-L 21.9 mL LA Vol/BSA A4C A-L LA Vol/BSA A2C A-L LA Vol/BSA BP A-L 11.7 mL/m2 LA Vol A4C MOD 15.0 mL LA Vol A2C MOD 23.4 mL LA Vol BP MOD 20.3 mL RA Volume RA Area A4C 5.7 cm2 RA ESV A4C (A-L) 7.5mL RA Vol/BSA A4C A-L RA Length A4C 3.7 cm RA ESV A4C (MOD) 7.0mL LV Diastology MV E' medial 0.113 (>0.07 m/s) MV E Vmax 0.67 (0.4-1.3 m/s) MV E/E' MED 5.94 (<14) MV A Vmax 0.65 (0.4-1.3 m/s) MV E' lateral 0.132 (>0.1 m/s) E/A Ratio 1.0 MV E/E' LAT 5.09 (<14) MV E' Average 0.123 m/s MV E/E'(average) 5.48 Aortic Valve AoV Vmax 1.18 m/s LVOT Vmax 1.08 m/s AoV Peak Grad 5.6 mmHg LVOT Peak Grad 4.7 mmHg AoV Area (Vmax) 2.77 cm2 LVOT VTI 0.235 m AoV VTI 0.262 m LVOT Mean Grad 2.0 mmHg AoV Mean Amarjit. 0.81 m/s LVOT SV 71.35 mL AoV Mean Grad 3.0 mmHg LVOT Diam s 1.95 cm AoV Area (VTI) 2.73 cm2 AV Regurg Peak Gr. 5.60 mmHg Velocity Ratio 0.92 Mitral Valve MV DT 200 (160-240 msec) Tricuspid Valve RA Pressure 3.00 mmHg TR Vmax 2.78 m/s TR Peak Grad 30.8 mmHg RVSP (TR) 33.9 mmHg
== END 2024-12-18 14:38 ==
LOC: DI 14:19
PROVIDERS: PCP Family Medicine; Visit Provider Internal Medicine Cardiovascular Disease
DX: I36.1 Nonrheumatic tricuspid (valve) insufficiency (principal); R06.09 Other forms of dyspnea
CPT/HCPCS: 93306

== ENCOUNTER 2025-01-12 13:20 | Outpatient (CLI) | payer OTHER, SELFPAY | END 2025-01-12 13:21 | disposition home or self-care (01) | PROVIDERS: PCP Family Medicine; Visit Provider Family Medicine | DX: R00.2 Palpitations (principal) | CPT/HCPCS: 93246 ==

== ENCOUNTER 2025-01-30 07:20 | Outpatient (CLI) | payer OTHER, SELFPAY ==
--- NOTE | 2025-01-30 12:35 | W.CARDEVENT ---
Date of service: 01/30/25 Time of Service: 12:35 Cardiac Event Recorder Referring Provider:: Melania Castle Indications:: Palpitations Cardiac Event Note: This is a cardiac event monitor. Patient was monitored for 4 days and 19 hours. Rhythm throughout was sinus with an average heart rate of 76. Minimum was 56, maximum 131. There were a total of 6 premature ventricular contractions. There were very very rare isolated atrial premature beats, 280 throughout the recording. There was several brief self-limited atrial runs, 3-4 beats in duration. Symptoms were reported which correlated to sinus tachycardia, rate 110 to 115/min
== END 2025-01-30 07:21 | disposition home or self-care (01) ==
LOC: CARDOPNVT 07:20
PROVIDERS: PCP Family Medicine; Visit Provider Internal Medicine Cardiovascular Disease
DX: R00.2 Palpitations (principal); I49.1 Atrial premature depolarization; I49.3 Ventricular premature depolarization
CPT/HCPCS: 93248

== ENCOUNTER 2025-02-13 11:56 | Emergency (ER) | payer OTHER, SELFPAY ==
[2025-02-13 12:04] VITALS: BP 121/77; PULSE 89; RESP 14; TEMP 36.7; O2SAT 99
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
== END 2025-02-13 12:28 | disposition home or self-care (01) ==
PROVIDERS: Emergency Provider Emergency Medicine; PCP Family Medicine
DX: S09.8XXA Other specified injuries of head, initial encounter (principal); H11.32 Conjunctival hemorrhage, left eye; D68.51 Activated protein C resistance; Z79.899 Other long term (current) drug therapy; W20.8XXA Other cause of strike by thrown, projected or falling object, initial encounter; Y93.89 Activity, other specified; Y92.018 Other place in single-family (private) house as the place of occurrence of the external cause
CPT/HCPCS: 99283

== ENCOUNTER 2025-02-23 18:47 | Emergency (ER) | payer OTHER, SELFPAY ==
[2025-02-23 18:49] VITALS: BP 132/93; PULSE 75; RESP 16; TEMP 36.7; O2SAT 99
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
== END 2025-02-23 19:31 | disposition home or self-care (01) ==
PROVIDERS: Emergency Provider Emergency Medicine; PCP Family Medicine
DX: R21 Rash and other nonspecific skin eruption; T50.905A Adverse effect of unspecified drugs, medicaments and biological substances, initial encounter
CPT/HCPCS: 99283 ×2

== ENCOUNTER 2025-03-19 02:55 | Outpatient (CLI) | payer OTHER, SELFPAY ==
--- NOTE | 2025-03-19 09:15 | DI.RAD_ITS ---
Exam(s) XR FOOT LT COMPLETE EXAM: XR FOOT LT COMPLETE CLINICAL HISTORY: foot pain and swelling, M79.672. TECHNIQUE: 2D digital imaging was performed. Three views. COMPARISON: CR,XR XR FOOT LT COMPLETE from 06/18/2022 FINDINGS: BONES: No acute fracture is present. No bony destructive lesion is seen. Tiny heel spurs. JOINTS: No dislocation present. Minimal degenerative changes at the 1st MTP joint. SOFT TISSUE: Normal. IMPRESSION: Minimal degenerative changes at the 1st MTP joint. DATA REPOSITORY: RADIATION DOSE DELIVERED:
--- NOTE | 2025-03-19 09:15 | DI.US_ITS ---
Exam(s) US LOWER EXTREMITY VENOUS LT EXAM: US LOWER EXTREMITY VENOUS LT CLINICAL HISTORY: left calf pain, M79.662. TECHNIQUE: Lower extremity venous ultrasound performed using grayscale, color- flow, and spectral Doppler analysis. COMPARISON: No exams were available for comparison FINDINGS: The common femoral, femoral and popliteal veins demonstrate normal compressibility, augmentation, and color Doppler. The posterior tibial and peroneal veins are patent. No saphenous vein thrombosis or other superficial venous thrombosis is seen. No hematoma or Fragoso's cyst is seen. IMPRESSION: Negative lower extremity ultrasound. No evidence of DVT. DATA REPOSITORY:
== END 2025-03-19 03:15 ==
LOC: DI 02:55
PROVIDERS: PCP Family Medicine; Visit Provider Physician Assistant
DX: M79.662 Pain in left lower leg (principal); M79.672 Pain in left foot
CPT/HCPCS: 73630; 93971

== ENCOUNTER 2025-03-23 15:02 | Outpatient (CLI) | payer OTHER, SELFPAY ==
--- NOTE | 2025-03-23 | DI.RAD_ITS ---
Exam(s) XR LUMBAR SPINE COMPLETE XR SACROILIAC JOINTS EXAM: XR LUMBAR SPINE COMPLETE CLINICAL HISTORY: Lumbar Radiculopathy M54.16. TECHNIQUE: 2D digital imaging was performed. Five views of the lumbar spine. Three views of the SI joints COMPARISON: CR XR SACROILIAC JOINTS from 03/23/2025 FINDINGS: BONES: No fracture or destructive lesion. Vertebral body heights are maintained. There are small endplate osteophytes. There are mild facet joint degenerative changes. There are mild degenerative changes of the SI joints. No bony erosions. DISKS: Intervertebral disc spaces are maintained. ALIGNMENT: Lumbar spinal alignment is within normal limits. SOFT TISSUE: Normal. IMPRESSION: Mild degenerative changes of the lumbar spine and SI joints. DATA REPOSITORY: RADIATION DOSE DELIVERED:
== END 2025-03-23 15:22 ==
LOC: DI 15:02
PROVIDERS: PCP Family Medicine; Visit Provider Family Medicine
DX: M54.16 Radiculopathy, lumbar region (principal)
CPT/HCPCS: 72110; 72202

== ENCOUNTER 2025-03-28 01:57 | Outpatient (CLI) | payer OTHER, SELFPAY ==
--- NOTE | 2025-03-28 | DI.MRI_ITS ---
Exam(s) MR LUMBAR SPINE WO EXAM: MR LUMBAR SPINE WO CLINICAL HISTORY: LUMBAR RADICULOPATHY,M54.16 AFFECTING L5-S1 NERVE DISTRIBUTION WITH ATROPHY. TECHNIQUE: Multiplanar multisequence MRI of the Lumbar spine was performed. COMPARISON: CR XR SACROILIAC JOINTS from 03/23/2025 CR XR LUMBAR SPINE COMPLETE from 03/23/2025 FINDINGS: Bones: The last intervertebral disc space is designated the L5/S1 level for the numbering purpose of this examination. The vertebral body heights are well maintained. Alignment is satisfactory. The signal characteristics are unremarkable. Cord: It is of normal size and signal intensity. T12-L1: No disc herniations or bulges are present. No central spinal canal or neural foraminal stenosis. L1-2: No disc herniations or bulges are present. No central spinal canal or neural foraminal stenosis. L2-3: No disc herniations or bulges are present. No central spinal canal or neural foraminal stenosis. L3-4: No disc herniations or bulges are present. There are degenerative changes of the facets. There is very mild narrowing of the central spinal canal.There is mild bilateral neural foraminal stenosis. L4-5: There is a mild diffuse disc bulge. There are degenerative changes of the facets. Mild central spinal canal stenosis is seen. There is mild bilateral neural foraminal stenosis. L5-S1: No disc herniations or bulges are present. No central spinal canal or neural foraminal stenosis. Soft tissues: The visualized SI joints and sacrum are well maintained. The paraspinal soft tissues are unremarkable. IMPRESSION: Multilevel degenerative changes in the lumbar spine resulting in central spinal canal or neural foraminal stenosis at L3-4 and L4-L5. DATA REPOSITORY:
== END 2025-03-28 02:17 ==
LOC: DI 01:57
PROVIDERS: PCP Family Medicine; Visit Provider Family Medicine
DX: M48.061 Spinal stenosis, lumbar region without neurogenic claudication (principal)
CPT/HCPCS: 72148

== ENCOUNTER 2025-04-19 18:41 | Outpatient (REF) | payer OTHER, SELFPAY | END 2025-04-19 18:42 | disposition home or self-care (01) | LOC: LBN 18:41 | PROVIDERS: PCP Family Medicine; Visit Provider Physician Assistant Medical | DX: J02.9 Acute pharyngitis, unspecified (principal) | CPT/HCPCS: 87070 ==

== ENCOUNTER 2025-05-15 10:05 | Outpatient (CLI) | payer OTHER, SELFPAY ==
[2025-05-15 08:30] LABS: Abs Immature Grans 0.01 10^3/uL (0.0-0.06); ESR 6 mm/hr (0-30); HCT 38.3 % (36.0-46.0); HGB 12.4 g/dL (11.2-15.7); Immature Grans % 0.2 %; MCH 31.0 pg (27.0-33.0); MCHC 32.4 % (32.0-36.0); MCV 96 fL (80-95); MPV 10.6 fL (8.0-11.0); Platelet Count 224 10^3/uL (130-400); RBC 4.00 10^6/uL (3.93-5.22); RDW 12.5 % (11.7-14.6); RDW-SD 44.9 fL; WBC 5.96 10^3/uL (4.4-10.8)
[2025-05-15 08:51] LABS: Creatine Kinase 107 U/L (26-192)
[2025-05-15 08:55] LABS: C-Reactive Protein < 0.50 mg/dL (<or=0.5)
[2025-05-15 12:07] LABS: ALT 21 U/L (14-59); AST 17 U/L (15-37); Albumin 3.8 g/dL (3.4-5.0); Alkaline Phosphatase 64 U/L (46-116); Anion Gap 8.1 mmol/L (3-11); BUN 18 mg/dL (7-18); Bilirubin, Total 0.3 mg/dL (0.2-1.0); CO2 28.9 mmol/L (21.0-32.0); Calcium 9.0 mg/dL (8.5-10.1); Chloride 104 mmol/L (98-107); Estimated GFR 101.44 (mL/min/1.73m2); Glucose 83 mg/dL (74-106); Mono Screening Negative (Negative); Potassium 3.9 mmol/L (3.5-5.1); Sodium 141 mmol/L (136-145); Total Protein 7.2 g/dL (6.4-8.2)
[2025-05-16 10:38] LABS: VCA IgG Positive (Negative); VCA IgM Negative (Negative)
[2025-05-16 11:27] LABS: Lyme Ab w Rflx to Lyme Confirm Negative (Negative)
== END 2025-05-15 10:06 | disposition home or self-care (01) ==
LOC: LBO 10:05
PROVIDERS: PCP Family Medicine; Visit Provider Family Medicine
DX: M79.10 Myalgia, unspecified site (principal); R07.0 Pain in throat
CPT/HCPCS: 36415; 80053; 82550; 85652; 85025; 86140; 86308; 86618; 86664; 86665

== ENCOUNTER 2025-05-15 15:57 | Outpatient (REF) | payer OTHER, SELFPAY | END 2025-05-15 15:58 | disposition home or self-care (01) | LOC: NCHCN 15:57 | PROVIDERS: PCP Family Medicine; Visit Provider Family Medicine | DX: R07.0 Pain in throat (principal) | CPT/HCPCS: 87070 ==

== ENCOUNTER 2025-05-23 06:10 | Day surgery (SDC) | payer OTHER, SELFPAY ==
--- NOTE | 2025-05-22 18:28 | W.ANESPRE ---
General Info Date of Service Date Performed: 05/23/25 Height: 5 ft 2 in Weight: 82.554 kg Body Mass Index (BMI): 33.3 Surgical Procedure: Operation Date: 05/23/25 07:40 Proposed Procedure Side Surgeon p Exam Under Anesthesia Anum Lua MD s Colonoscopy Anum Lua MD Meds Allergies and Home Medications Allergies Allergy/AdvReac Type Severity Reaction Status Date / Time cortisone Allergy Severe circulatory/dermal Verified 05/23/25 06:31 reaction Penicillins Allergy Intermediate FACIAL Verified 05/23/25 06:31 SWELLING, lips stevioside (From Stevia) Allergy Intermediate rash Verified 05/23/25 06:31 tirzepatide (From Zepbound) Allergy Unknown Skin Rash Verified 05/23/25 06:31 Sulfa (Sulfonamide Allergy Skin Rash Verified 05/23/25 06:31 Antibiotics) venlafaxine HCl (From AdvReac Unknown felt Verified 05/21/25 14:55 Effexor) weird, eyes becam dilated per pt Home Medication ?Medication ?Instructions ?Recorded escitalopram oxalate 5 mg tablet 5 mg PO DAILY 11/24/24 penciclovir 1 % topical cream 1 applic topical Q2H PRN 11/24/24 (Denavir) rimegepant 75 mg disintegrating 75 mg PO ONCE PRN 11/24/24 tablet (Nurtec ODT) epinephrine 0.3 mg/0.3 mL 0.3 mg (0.3 mL) IM Q5-15M PRN #1 ea 02/23/25 injection, auto-injector (EpiPen) lidocaine 5 % topical cream 1 applic topical BID PRN 04/24/25 (RectiCare) omeprazole 20 mg capsule,delayed 20 mg PO DAILY PRN 05/09/25 release semaglutide (weight loss) 0.25 0.25 mg subcut QWEEK 05/09/25 mg/0.5 mL subcutaneous pen injector ([place]) Current Visit Medications: Current Medications Generic Name Dose Route Start Last Admin Trade Name Freq PRN Reason Stop Dose Admin Ringer's Solution 1,000 mls @ 80 mls/hr 05/23/25 06:00 IV 05/23/25 23:59 INFUSION JANETTE Cefazolin Sodium/Dextrose 2 gm in 50 mls @ 100 mls/hr 05/23/25 06:00 Ancef Duplex IVPB 05/23/25 23:59 PREOP JANETTE IV Miscellaneous Supplies 1 each 05/23/25 06:00 Iv Access IV 05/23/25 23:59 DIRECTED JANETTE Sodium Biphosphate/Sodium Phosphate 133 ml 05/23/25 06:00 Na Phosphate Enema-Adult 133 Ml Btl OK 05/23/25 23:59 DIRECTED PRN Sodium Chloride 0 ml 05/23/25 06:00 Normal Saline Flush 10 Ml Syr IV 05/23/25 23:59 PRN PRN Sodium Chloride 0 ml 05/23/25 06:00 Normal Saline 10 Ml Vial IJ 05/23/25 23:59 DIRECTED PRN Sterile Water 0 ml 05/23/25 06:00 Water,Injection,Sterile 10 Ml Vial IJ 05/23/25 23:59 DIRECTED PRN PFSH Active Problems Active Problems: Problem Status Onset Code Tear of anal skin Acute S31.831A Fecal incontinence Acute R15.9 Anxiety disorder Acute F41.9 Bursitis of hip Acute M70.70 Solitary lung nodule Acute R91.1 Activated protein C resistance Acute D68.51 Obesity Chronic E66.9 Migraine Chronic G43.909 Herpes labialis Acute B00.1 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 Biceps tendinitis Acute M75.20 Frequent fecal incontinence Acute R15.9 Chronic back pain Acute M54.9, G89.29 Depressive disorder Chronic F32.A Shoulder pain Acute M25.519 GERD (gastroesophageal reflux disease) Chronic K21.9 Left rotator cuff tear Acute M75.102 Trochanteric bursitis, right hip Acute M70.61 Pain in left foot Acute ~08/02/24 M79.672 Plantar verruca Acute B07.0 Foot pain Acute M79.673 Capsulitis Acute M77.9 Other disorders of bone and cartilage Acute M94.8X9, M89.8X9 Microscopic hematuria Resolved R31.29 Allergic rhinitis due to other allergen Acute 04/01/15 J30.89 Constipation Acute 11/21/15 K59.00 Dyspepsia Acute 11/21/14 R10.13 Factor V Leiden mutation Acute 10/11/17 D68.51 Fibromyalgia Acute 10/25/14 M79.7 Keratosis pilaris Acute 07/31/15 L85.8 Urinary frequency Acute 12/22/11 R35.0 IBS (irritable bowel syndrome) Chronic K58.9 Toxoplasmosis Acute B58.9 Medical History Medical History Neck pain Iliotibial band friction syndrome of both knees Stomach cramps Early satiety Burn of skin Pain, joint, shoulder region, left Laceration of left thumb Fatigue COVID-19 Muscle pain Pruritic rash Nontraumatic rotator cuff tear Pain of left lower extremity Muscle tension pain Sore throat Dyspnea Muscle weakness Weight increased Headache Chronic low back pain Cervical lymphadenopathy New daily persistent headache Nontraumatic rupture of left rotator cuff Piriformis syndrome of left side Otalgia, left ear Pain of left heel Palpitations Pain of left calf Lumbar radiculopathy Disorder of large intestine Seasonal allergies Atrophic vaginitis Aphthous ulcer of mouth OAB (overactive bladder) Vitamin D deficiency (12/22/11) Varicose veins of bilateral lower extremities with pain (03/11/16) Urge incontinence (01/07/16) Left lower quadrant pain (04/29/16) Onset 04/27/16. Bilateral ovarian cysts on u/s. 04/2016 CA-125 =6. [place] [facility] [place]. Bladder spasms (01/07/16) Eating disorder (12/22/11) Normal endoscopy 09/27/18 Upper GI [facility]-normal esophagus,stomach and duodenum Abdominal pain colonoscopies by Dr. Pickett @ . No recurrance of inflammatory bowel disease. 08/2015 N[address] renal and abd CT. Hx of supraventricular tachycardia Pt advised to take Metoprolol if recurrent sx. Echo recommended for 07/2016. Fibromyalgia Surgical History Surgical History Acquired absence of both cervix and uterus History of colonoscopy (~2018) [facility] H/O bilateral oophorectomy [facility] 2015 History of abdominoplasty r shoulder surgery (02/17/16) [facility] Ligation of fallopian tube (~2008) Tonsillectomy (~2012) [facility]OW (~2010) Open Carpal Tunnel release (~2009) Abdominal hysterectomy (~2008) EGD - [facility] [place] 1993; [facility] Colonoscopy - [facility] [place] 1993 2007 2012 Tobacco Smoking/Tobacco Use Status: Never Passive smoking exposure: No Alcohol Alcohol Intake: current Alcohol intake frequency: holidays/special occasions only Substance Use Substance use: Never Substance use type: does not use Vital Signs and Lab Results Vital Signs Most Recent Vital Signs in EMR: Temp Pulse Resp BP Pulse Ox 36.1 C L 83 18 110/77 100 05/23/25 06:15 05/23/25 06:15 05/23/25 06:15 05/23/25 06:15 05/23/25 06:15 Lab Results Complete Blood Count: WBC, (4.4-10.8) 5.96 10^3/uL 05/15/25, 08:26 RBC, (3.93-5.22) 4.00 10^6/uL 05/15/25, 08: Hgb, (11.2-15.7) 12.4 g/dL 05/15/25, 08: Hct, (36.0-46.0) 38.3 % 05/15/25, 08: Plt Count, (130-400) 224 10^3/uL 05/15/25, 08:26 Complete Metabolic Panel: Sodium, (136-145) 141 mmol/L 05/15/25, 08:25 Potassium, (3.5-5.1) 3.9 mmol/L 05/15/25, 08:25 Chloride, (98-107) 104 mmol/L 05/15/25, 08:25 Carbon Dioxide, (21.0-32.0) 28.9 mmol/L 05/15/25, 08:25 BUN, (7-18) 18 mg/dL 05/15/25, 08:25 Creatinine, (0.55-1.02) 0.7 mg/dL 05/15/25, 08:25 Est GFR (CKD-EPI 2020), (mL/min/1.73m2) 101.44 05/15/25, 08:25 Calcium, (8.5-10.1) 9.0 mg/dL 05/15/25, 08:25 Albumin, (3.4-5.0) 3.8 g/dL 05/15/25, 08:25 Glucose, (74-106) 83 mg/dL 05/15/25, 08:25 C-Reactive Protein, (<or=0.5) < 0.50 mg/dL 05/15/25, 08:26 Liver Function Panel: ALT, (14-59) 21 U/L 05/15/25, 08:25 AST, (15-37) 17 U/L 05/15/25, 08:25 Cardiac Panel: Creatine Kinase, (26-192) 107 U/L 05/15/25 Imaging and Studies Imaging and Studies Study information below may be from another EMR and interpreted by another provider. Please see original notes in EMR for more complete details. Echocardiogram Summary: ate of study: 07/23/2016 Transthoracic Echocardiography M-mode, complete 2D, complete spectral Doppler, and color Doppler *STUDY CONCLUSIONS* Summary: 1. Left ventricle: The cavity size was normal. Wall thickness was normal. Systolic function was normal. The estimated ejection fraction was 60-65%. Wall motion was normal; there were no regional wall motion abnormalities. 2. Aortic valve: There was trivial regurgitation. 3. Right ventricle: The cavity size was normal. Wall thickness was normal. Systolic function was normal. Anesthesia Assessment and Plan Anesthesia History Personal History: No History of Anesthesia Complications Family History: No Family History of Anesthesia Complications Exercise Tolerance Exercise Tolerance: Metabolic Equivalents>4 Cardiac & Pulmonary Exam Cardiac Exam: Normal S1/S2 Heart Sounds Pulmonary Exam: Clear Bilateral Breath Sounds Implantable Cardiac Device Does patient have a Pacemaker or an ICD?: No Airway Exam Known Difficult Airway: No Mallampati Class: 1 Mouth Opening: Normal (> 3cm) Thyromental Distance: Greater than 3 cm Neck Range of Motion: Full ROM Neck Circumference: Normal Teeth Condition: Removable Dentures/Plates Upper and Removable Dentures/Plates Lower ASA Classification ASA Score: ASA 2 Emergency Case?: No NPO Status NPO Status: NPO Clears >2 hours, Solids >8 hours Anesthesia Plan Resuscitation Status: Full Code Anesthesia Technique: General Anesthesia Airway Planned: Natural Airway Monitors Used: Standard Monitors Preoperative Comments:: 54 yo for EUA/colo. Sig PMHx: SVT (no longer an issue), GERD (Omeprazole. Well controlled, bed no longer on risers. Is only an issues when she is on steroids), Fatemeh type I, factor V, anxiety/depression, fibromyalgia, migraine (Nurtec), LBP. GLP-1 on list, last dose was 3 weeks ago, no longer taking. ECHO (for VERGARA, which is no longer an issue): 65%, no sig valve issues. Previous Anes: - shoulder, easy mask, glide 3 grade 1, no issues. - cysto, light prop sedation, natural airway, no issues. pre op comment HOB on blocks sleeps with two pillows, and that stomach is sore that day.
[2025-05-23 06:15] VITALS: BP 110/77; PULSE 83; RESP 18; TEMP 36.1; O2SAT 100
[2025-05-23] MEDS: Lactated Ringers 1,000 ML 80 ML IV (06:48)
[2025-05-23 06:50] VITALS: BMI 33.3
--- NOTE | 2025-05-23 07:54 | BOWEL_PTH ---
PATIENT: [place] Hall LOC: [facility] U#:[id number] AGE/SX: 54/F ROOM: RE05/23/[address]: Anum Lua : 1970 BED: DIS: 05/23/2025 SPEC #: [id number] RECD: 05/23/25 12:41 STATUS: FELIX RE #: [id number] LANCE: 05/23/25 07:[address]: Anum Lua DEPT: Surgical Specimen RECD BY: Liz Contreras ENTERED: 05/23/25 12:43 SP TYPE: Bowel OTHR DR: Melania Castle Tissues: 1 - BIOPSY BOWEL 2 - BIOPSY BOWEL 3 - BIOPSY BOWEL Procedures: GROSS AND MICRO LEVEL 4 Comments: [id number]
[2025-05-23 08:10] VITALS: BP 98/72; PULSE 74; RESP 16; TEMP 36.2; O2SAT 100
--- NOTE | 2025-05-23 08:19 | W.COLOREPORT ---
Date of service: 05/23/25 Time of Service: 08:22 Colonoscopy Report Procedure: Exam under anesthesia, colonoscopy with diagnostic biopsies Surgeon: Anum Lua Anesthesia Type: General:No Airway Estimated blood loss (mL): 2 Pathology: other (Ascending colon biopsy, transverse colon biopsy, descending colon biopsy) Complications: None Disposition: PACU Indications: Fecal incontinence Prep: Miralax/Dulcolax Procedure Start Time: 07:38 Procedure End Time: 08:04 Retraction Time: 13 minutes Findings: Normal external anal exam and digital rectal exam. Normal colonoscopy. Diagnostic biopsies obtained in ascending, transverse and descending colon. Procedure Description: Informed consent was obtained. The patient was taken to the operating room and placed in the left lateral decubitus position. After adequate intravenous sedation, an external anal exam was performed as well as a digital rectal exam was performed, which was normal. A colonoscope was inserted into the rectum and negotiated to the cecum. The ileocecal valve and appendiceal orifice were identified. The entire colonic mucosa was then carefully circumferentially inspected upon slow withdrawal of the scope. The cecum, ascending, transverse, and descending colon were all normal. Given her history of a diagnosis of IBD diagnostic biopsies were obtained in the ascending, transverse and descending colon. Retroflexion in the rectum was unremarkable. The patient tolerated the procedure well with no complications. Postoperatively, the patient was transferred to the recovery room in stable condition. [place] Bowel Prep [place] Bowel Prep Right Colon: 3 Left Colon: 3 Transverse Colon: 3 Total Score: 9
[2025-05-23 08:30] VITALS: BP 116/68; PULSE 67; RESP 16; TEMP 36.4; O2SAT 100
--- NOTE | 2025-05-23 08:30 | W.ANESPOSTOP ---
Postoperative Evaluation Date, Time and Location Date Performed: 05/23/25 Time Performed: 08:30 Patient Location: Day Surgery Unit Vital Signs Most Recent Imported Vital Signs: Most Recent Vital Signs Temp Pulse Resp BP Pulse Ox 36.2 C L 74 16 98/72 L 100 05/23/25 08:10 05/23/25 08:10 05/23/25 08:10 05/23/25 08:10 05/23/25 08:10 Pain Score Most Recent Pain Score: Most Recent Pain Score Pain Level 0 05/23/25 08:10 Assessment Mental Status: Awake (Alert & Oriented to Patient Baseline) Airway and Respiratory Function: Patent airway with normal (patient baseline) respiratory exam Cardiovascular Function: Hemodynamically Stable Hydration Status: Adequately Hydrated Nausea & Vomiting: No Nausea or Vomiting Pain: Pt. Denies Any Pain Peripheral Nerve Block: Patient did not receive a nerve block
== END 2025-05-23 09:10 | disposition home or self-care (01) ==
PROVIDERS: PCP Family Medicine; Visit Provider Student in an Organized Health Care Education/Training Program
PROC: 0DJD8ZZ Inspection of Lower Intestinal Tract, Via Natural or Artificial Opening Endoscopic (ICD-10-PCS; CPT 45378; 2025-05-23 07:30)
DX: R15.9 Full incontinence of feces (principal)
CPT/HCPCS: 45380; 00123; 88305; J1885; J2405; J2704

== ENCOUNTER 2025-05-31 15:29 | Outpatient (CLI) | payer OTHER, SELFPAY ==
[2025-05-31 15:38] LABS: D-Dimer 515 ng/mlFEU (<500)
== END 2025-05-31 15:30 | disposition home or self-care (01) ==
PROVIDERS: PCP Family Medicine; Visit Provider Nurse Practitioner Family
DX: R06.02 Shortness of breath (principal)
CPT/HCPCS: 36415; 85379

== ENCOUNTER 2025-06-01 15:01 | Outpatient (CLI) | payer OTHER, SELFPAY ==
--- NOTE | 2025-06-01 | DI.CT_ITS ---
Exam(s) CT CHEST PE CTA EXAM: CT CHEST PE CTA CLINICAL HISTORY: ELEVATED D DIMER,R79.89,SOB. TECHNIQUE: Imaging Protocol: Axial CT angiography was performed with multi- slice acquisition and multi-planar and/or 3D reconstructions. Lung Computer Aided Detection (CAD) was utilized. CONTRAST MATERIAL: Intravenous: Omnipaque 350 contrast volume:80 mL COMPARISON: CT CHEST FOR PULMONARY EMBOLUS from 07/20/2016 CT CHEST WITHOUT CONTRAST from 05/03/2017 FINDINGS: Tracheobronchial tree: Patent where visualized. No bronchiectasis. Pulmonary parenchyma: There is a multifocal ground-glass infiltrate involving both upper and lower lobes bilaterally. No architectural distortion. Pulmonary Arteries: No evidence of filling defect to suggest pulmonary emboli. Mediastinum and Yulissa: No dominant adenopathy or fluid collection. The esophagus is unremarkable. Visualized thyroid gland: No suspicious thyroid nodules. Pleura: No effusion or pneumothorax. Heart: The heart is not dilated. No coronary artery calcifications are seen. No pericardial effusion. Aorta: Thoracic aorta non-dilated. No evidence of dissection. Upper abdomen: Unremarkable. Soft tissues: Unremarkable. Bones: Within normal limits for the patient's age. IMPRESSION: 1. No evidence of pulmonary embolism, thoracic aortic dissection or aneurysm. 2. Multifocal pneumonia. COVID-19 should be considered in the differential. RADIATION DOSE DELIVERED: 78.96mGy.cm Total DLP DATA REPOSITORY: All CT scans at this facility are submitted to the National Radiology Data Registry (NRDR) Dose Index Registry (DIR) with the [employer] ([employer]). RADIATION OPTIMIZATION: All CT scans at this facility use at least one of these dose optimization techniques: automated exposure control; mA and/or kV adjustment per patient size (includes targeted exams where dose is matched to clinical indication); or iterative reconstruction.
[2025-06-01] MEDS: Omnipaque 350 MG/ML 500 ML BTL-Imaging package IJ (08:22)
[2025-06-01] MEDS: Normal Saline - Diluent 50 ML VIAL IJ (08:25)
[2025-06-01] MEDS: Normal Saline Flush 10 ML SYR IJ (08:26)
== END 2025-06-01 15:21 ==
LOC: DI 15:01
PROVIDERS: PCP Family Medicine; Visit Provider Nurse Practitioner Family
DX: J18.8 Other pneumonia, unspecified organism (principal)
CPT/HCPCS: 71275

== ENCOUNTER 2025-06-08 09:55 | Outpatient (CLI) | payer OTHER, SELFPAY ==
--- NOTE | 2025-06-08 | DI.RAD_ITS ---
Exam(s) XR CHEST 2V PA LATERAL EXAM: XR CHEST 2V PA LATERAL CLINICAL HISTORY: PNEUMONIA J18.9 MONITOR IMPROVEMENT INFILTRATES SEEN CT TECHNIQUE: 2D digital imaging was performed. Two views. COMPARISON: CT CT CHEST PE CTA from 06/01/2025 FINDINGS: HEART: Normal size. Aorta: Not dilated. PULMONARY VASCULATURE: Normal. MEDIASTINUM: Unremarkable. LUNGS: Clear. PLEURAL SPACE: No pleural effusion or pneumothorax. BONE:Unremarkable for age. SOFT TISSUES: Unremarkable. IMPRESSION: No acute abnormality. DATA REPOSITORY: RADIATION DOSE DELIVERED:
== END 2025-06-08 10:15 ==
LOC: DI 09:58
PROVIDERS: PCP Family Medicine; Visit Provider Family Medicine
DX: J18.9 Pneumonia, unspecified organism (principal)
CPT/HCPCS: 71046